=== PATIENT | male | born 1950 | race Caucasian/White ===

== ENCOUNTER 2023-05-16 12:21 | Outpatient (REF) | payer MEDICARE, OTHER, SELFPAY | END 2023-05-16 12:22 | disposition home or self-care (01) | LOC: HO.MDS 12:21 | PROVIDERS: Visit Provider Psychiatry & Neurology Neurology | DX: G35 Multiple sclerosis (principal) | CPT/HCPCS: 96365; J2930 ==

== ENCOUNTER 2023-05-17 12:21 | Outpatient (REF) | payer MEDICARE, OTHER, SELFPAY | END 2023-05-17 12:22 | disposition home or self-care (01) | LOC: HO.MDS 12:21 | PROVIDERS: Visit Provider Psychiatry & Neurology Neurology | DX: G35 Multiple sclerosis (principal) | CPT/HCPCS: 96365; J2930 ==

== ENCOUNTER 2023-05-18 12:15 | Outpatient (REF) | payer MEDICARE, OTHER, SELFPAY | END 2023-05-18 12:16 | disposition home or self-care (01) | LOC: HO.MDS 12:15 | PROVIDERS: Visit Provider Psychiatry & Neurology Neurology | DX: G35 Multiple sclerosis (principal) | CPT/HCPCS: 96365; J2930 ==

== ENCOUNTER 2025-09-17 12:22 | Outpatient (AMB) | payer MEDICARE, OTHER, SELFPAY ==
--- NOTE | 2025-09-17 12:33 | MHC.OFFVIS ---
Intake Visit Reasons: 1 year follow up/ MS Allergies No Known Allergies Allergy (Verified 07/05/25 10:53) HPI Comments Details: 75 yo RH man with HTN, left foot drop, and abnormal brain MRI suggestive of chronic multiple sclerosis. In 2017, he had an MRI to investigate left leg weakness that suggested a right frontal infarct, but MRI also showed many other lesions suggestive of demylinating disease and no acute lesion to explain left leg weakness. He has stopped drinking alcohol. He is presenting for a follow-up visit for chronic multiple sclerosis. He reports his condition has been stable over the last year, with no decline in his ability to get around, and he continues to use a cane, which he has had for about a year and a half. He does not use a walker. The patient reports experiencing better and worse days, and notes that his symptoms are exacerbated by heat. He previously received a course of three steroid injections which provided no noticeable improvement in his symptoms. The patient reports going to the gym for exercise. He endorses having a depressed mood related to his physical limitations and inability to run as he did many years ago. He also reports urinary frequency, which he is unsure is related to his prostate or MS, and reports recent pain in his other leg, which is attributed to arthritis. [facility] Medical History (Updated 09/17/25 @ 12:34 by Mikal Quintana MD) Hemiparesis Spastic bladder Peripheral neuropathy Monoparesis Ataxia MCI (mild cognitive impairment) Review of Systems Narrative - Neurological: Reports stable walking ability with the use of a cane. - Denies recent falls. - Constitutional: Reports symptoms are exacerbated by heat. - Reports low energy. - Psychiatric: Reports feeling depressed due to physical limitations. - Genitourinary: Reports urinary frequency. - Musculoskeletal: Reports recent pain in one leg, attributed to arthritis. - Cognition: Reports memory is not bad. - Sleep: Reports sleeping pretty good. - Appetite: Reports appetite is okay. Physical Exam Neuro Other: Mental Status: Alert and oriented to person, place, and time. Normal attention. Normal spontaneous speech, fluency, and comprehension. Cranial Nerves: CN II: Visual ivy full to confrontation, visual acuity intact. CN III, IV, : Pupils equal, round, reactive to light and accommodation. Extraocular movements are normal. CN V: Facial sensation is normal. CN VII: Facial movements symmetrical. CN VIII: Hearing intact to bedside conversation is normal. CN IX, X: Palate elevates symmetrically. CN XI: Shoulder shrug and head turn symmetrical. CN XII: Tongue midline without atrophy or fasciculations. Extrapyramidal: Full facial expressions and blinking. No rigidity. Movements are appropriate with no tremor or abnormality. Speech: Normal; no dysarthria or tremor. 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 04/25/23. MRI brain WO at [facility] [place] in 2017: Multiple b/l small lesions suggestive most of demyelinating disease. Plus an acute left frontal patchy lesion, ?ischemic MRA brain and neck at [facility] [place] in 2017: [place]. Code(s): G35.D - Multiple sclerosis, unspecified Category: Medical Plan Impression: a: Chronic multiple sclerosis b: Mild depression b: Mild cognitive impairment Rec: a; Regular exercise b: Stay active c: Try to use a walker for safety I discussed with the patient that his multiple sclerosis is now in a chronic phase, which means it is stable and not expected to significantly worsen, but also not likely to improve. We reviewed his prior trial of steroid injections, and since he reported no benefit, we agreed not to pursue that treatment again. I recommended he continue exercising, including walking and careful strength training, to support his leg function. I offered a referral for physical therapy, which he declined, stating he prefers to go to the gym on his own. I advised that no medication changes are needed at this time and scheduled a follow-up appointment in one year. Coding Level of Care Code Est Pt Level 4 (11236) Diagnoses Multiple sclerosis G35.D
--- OUTSIDE RECORDS SUMMARY | 2025-09-17 13:27 | XMS_ITS | Clinical Summary ---
Author Organization [facility] [address] [facility] Address [address] [place] [address] Phone Care Team Providers Care Engine Repair Supervisor Name Role Phone Terrell Wood Primary Care Provider Allergies No known active allergies Medications lisinopril-hydro CHLOROthiazide (PRINZIDE,ZESTOR ETIC) 10-12.5 mg per tablet Take 1 tablet by mouth 1 (one) time each day. 02/23/2022 Active atorvastatin (LIPITOR) 20 mg tablet Take 1 tablet (20 mg total) by mouth. 03/30/2022 Active Medical History Medical History Date Comments Hypertension DX:Hypertension Hypercholesteremia DX:Hyperchole steremia Family History Medical History Relation Name Comments Cancer Father Cancer Mother Relation Name Status Comments Father Mother Social History Tobacco Use Types Packs/Day Years Used Date Smoking Tobacco: Former Smokeless Tobacco: Never Alcohol Use Standard Drinks/Week Comments Yes 0 (1 standard drink = 0.6 oz pur e alcohol) Interpersonal Safety Answer Date Record ed Physical Abuse Unrecognized value 10/01/2024 Verbal Abuse Unrecognized value 10/01/2024 Sex and Gender Information Value Date Recorded Sex Assigned at Male 09/28/2024 1:55 PM EST Legal Sex Male 5:05 PM EST Gender Identity Not on file Sexual Orientation Not on file Last Filed Vital Signs Vital Sign Reading Time Taken Comments Blood Pressure 111/67 10/01/2024 9:54 AM EST Pulse 61 10/01/2024 9:54 AM EST Temperature - - Respiratory Rate 16 10/01/2024 9:54 AM EST Oxygen Saturation 98% 10/01/2024 9:54 AM EST Inhaled Oxygen Concentration - - Weight 83.9 kg (185 lb) 10/01/2024 9:06 AM EST Height 182.9 cm (6') 10/01/2024 9:06 AM EST Body Mass Index 25.09 10/01/2024 9:06 AM EST Plan of Treatment Health Maintenance Due Date Last Done Comments Cholesterol Screening (Lipid Panel) 08/25/2022 Hepatitis C Screening 08/25/2022 Medicare Annual Wellness Visit 08/25/2022 Social Influencers of Health Screening 08/25/2022 RSV Immunization Adult Patients (1 - 1-dose 75+ series) 2024 Depression Screening 09/26/2024 COVID-19 Vaccine (2024- season) 2025 08/14/2024, 06/17/2023, 02/27/2023, Additional history exists Influenza Vaccine (#1) 2025 , 07/31/2022, 07/08/2021, Additional history exists Falls Risk Assessment 10/01/2025 10/01/2024 DTaP,Tdap,and Td Vaccines (3 - Td or Tdap) 07/19/2029 07/19/2019, 07/12/2008 Pneumococcal Vaccine: 50+ Years Completed 07/31/2022, 11/06/2015, 11/05/2014 Zoster Vaccines Completed 08/25/2023, 05/28, 12/16/2015 Colorectal Cancer Screening: Colonoscopy Discontinued 10/01/2024 HIB Vaccines Aged Out No longer eligi ble based on patient's age to complete this topic HPV Vaccines Aged Out No longer eligi ble based on patient's age to complete this topic Hepatitis A Vaccines Aged Out No long er eligible based on patient's age to complete this topic Hepatitis B Vaccines Aged Out No long er eligible based on patient's age to complete this topic IPV Vaccines Aged Out No longer eligi ble based on patient's age to complete this topic MMR Vaccines Aged Out No longer eligi ble based on patient's age to complete this topic Meningococcal ACWY Vaccine Aged Out N o longer eligible based on patient's age to complete this topic Meningococcal B Vaccine Aged Out No l onger eligible based on patient's age to complete this topic RSV Immunization Patients Under 20 months Aged Out No longer eligible based on patient's age to complete this topic Varicella Vaccines Aged Out No longer eligible based on patient's age to complete this topic Procedures Procedure Name Priority Date/Time Associated Diagnosis Comments COLONOSCOPY Routine 10/01/2024 9:33 AM EST Personal history of other colon polyps from Last 3 Months or Most Recently Relevant to Health Maintenance Results * COLONOSCOPY Sedation; [facility] ENDOSCOPY (10/01/2024 9:33 AM EST) Anatomical Region Laterality Modality Endoscopy 10/01/2024 9:13 AM EST Impressions 10/01/2024 9:33 AM EST - Non-bleeding internal hemorrhoids. - The examination was otherwise normal on direct and retroflexion views. - No specimens collected. Recommendation: - Discharge patient to home. - Resume previous diet. - Continue present medications. - Repeat colonoscopy in 5 years for surveillance. - Return to GI office PRN. Narrative 10/01/2024 9:33 AM EST [facility] GI Patient Name: Geo Hyde Procedure Date: 10/01/2024 9:13 AM Date of : 1950 Age: 74 Room: ROOM 15 Gender: Male Note Status: Finalized Attending MD: King Carbone MD, Procedure Date No Time: 10/01/2024 Procedure: Colonoscopy Indications: High risk colon cancer surveillance: Personal history of colonic polyps Providers: King Carbone MD Referring MD: King Carbone MD Medicines: Monitored Anesthesia Care Complications: No immediate complications. Estimated Blood Loss: Estimated blood loss: none. Procedure: Pre-Anesthesia Assessment: - ASA Grade Assessment: II - A patient with mild systemic disease. - After reviewing the risks and benefits, the patient was deemed in satisfactory condition to undergo the procedure. After I obtained informed consent, the scope was passed under direct vision. Throughout the procedure, the patient's blood pressure, pulse, and oxygen saturations were monitored continuously.The Colonoscope was introduced through the anus and advanced to the cecum, identified by appendiceal orifice and ileocecal valve. The colonoscopy was performed without difficulty. The patient tolerated the procedure well. The quality of the bowel preparation was good. Findings: Non-bleeding internal hemorrhoids were found during retroflexion. The hemorrhoids were medium-sized. The exam was otherwise without abnormality on direct and retroflexion views. Procedure Code(s): --- Professional --- G0105, Colorectal cancer screening; colonoscopy on individual at high risk Diagnosis Code(s): --- Professional --- Z86.010, Personal history of colonic polyps CPT copyright 2020 [employer]. All rights reserved. The codes documented in this report are preliminary and upon orthopedic coder review may be revised to meet current compliance requirements. King Carbone MD 10/01/2024 9:33:31 AM This report has been signed electronically.King Carbone MD Number of Addenda: 0 Note Initiated On: 10/01/2024 9:13 AM Scope In: Scope Out: Endoscopy Department at [facility] - [address] [place] [id number] Procedure Note King Carbone MD - 10/01/2024 [facility] GI Patient Name: Geo Hyde Procedure Date: 10/01/2024 9:13 AM Date of : 1950 Age: 74 Room: ROOM 15 Gender: Male Note Status: Finalized Attending MD: King Carbone MD, Procedure Date No Time: 10/01/2024 Procedure: Colonoscopy Indications: High risk colon cancer surveillance: Personalhistory of colonic polyps Providers: King Carbone MD Referring MD: King Carbone MD Medicines: Monitored Anesthesia Care Complications: No immediate complications. Estimated Blood Loss: Estimated blood loss: none. Procedure: Pre-Anesthesia Assessment: - ASA Grade Assessment: II - A patient with mild systemic disease. - After reviewing the risks and benefits, thepatient was deemed in satisfactory condition to undergo the procedure. After I obtained informed consent, the scope was passed under direct vision. Throughout theprocedure, the patient's blood pressure, pulse, and oxygen saturations were monitored continuously.The Colonoscope was introduced through the anus and advanced to the cecum, identified by appendiceal orifice and ileocecal valve. The colonoscopy was performed without difficulty. The patient tolerated the procedure well. The quality of the bowel preparation was good. Findings: Non-bleeding internal hemorrhoids were found during retroflexion. The hemorrhoids were medium-sized. The exam was otherwise without abnormality ondirect and retroflexion views. Procedure Code(s): --- Professional --- G0105, Colorectal cancer screening; colonoscopy on individual at high risk Diagnosis Code(s): --- Professional --- Z86.010, Personal history of colonic polyps CPT copyright 2020 [employer]. All rights reserved. The codes documented in this report are preliminary and upon orthopedic coder reviewmay be revised to meet current compliance requirements. King Carbone MD 10/01/2024 9:33:31 AM This report has been signed electronically.King Carbone MD Number of Addenda: 0 Note Initiated On: 10/01/2024 9:13 AM Scope In: Scope Out: Endoscopy Department at [facility] - [address] [place] [phone] IMPRESSION: - Non-bleeding internal hemorrhoids. - The examination was otherwise normal on directand retroflexion views. - No specimens collected. Recommendation: - Discharge patient to home. - Resume previous diet. - Continue present medications. - Repeat colonoscopy in 5 years for surveillance. - Return to GI office PRN. King Carbone MD GI~PROCEDURE ORDERABLES Final Result from Last 3 Months or Most Recently Relevant to Health Maintenance Insurance MEDIC[facility] Care Teams Engine Repair Supervisor Relationship Specialty [place] [address] [place] [phone] PCP - General Internal Medicine 07/17/24
--- OUTSIDE RECORDS SUMMARY | 2025-09-17 13:28 | XMS_ITS | Clinical Summary ---
Author Organization [facility] Prior to 02/23/[address] [place] [address] Care Team Providers Care Instrument Processing Tech Name Role Phone Terrell Wood PA-C Primary Care Provider [phone]- [phone] Medications Medication Sig Dispensed Refills Start Date End Date Status atorvastatin (LIPITOR) tablet 20 mg Take 20 mg by mouth daily. 0 03/30/2022 Active lisinopril-hydroCHLORO thiazide (PRINZIDE,ZESTORETIC) tablet 10-12.5 mg Take 1 tablet by mouth daily. 0 02/23/2022 Active Hospital, Clinic, or Other Facility Administered Medication Ordered Dose Route Frequency Start Date End Date Status lidocaine 2 % injection 4 mLIndications:Primary osteoarthritis of right knee 4 mL SC Once 05/19/2022 Active bupivacaine (MARCAINE) 0.5 % injection 20 mgIndications:Primary osteoarthritis of right knee 20 mg IJ Once 05/19/2022 Active triamcinolone acetonide (KENALOG-40) injection 40 mgIndications:Primary osteoarthritis of right knee 40 mg IX Once 05/19/2022 Active Family History Medical History Relation Name Comments Cancer Father Cancer Mother Relation Name Status Comments Father Mother Social History Tobacco Use Types Packs/Day Years Used Date Smoking Tobacco: Former Smokeless Tobacco: Never Alcohol Use Standard Drinks/Week Comments Yes 0 (1 standard drink = 0.6 oz pur e alcohol) Sex and Gender Information Value Date Recorded Sex Assigned at Not on file Gender Identity Not on file Sexual Orientation Not on file Job Start Date Occupation Industry Not on file Not on file Not on file Plan of Treatment Health Maintenance Due Date Last Done Comments Hepatitis C Screening 1950 Depression Screening 1961 Preventative Health Evaluation 1967 Shingrix-Zoster Vaccine (1 of 2) 1999 Fall Risk Assessment 2014 RSV Adult > 60+ Yrs or (1 - 1-dose 75+ series) 2024 COVID-19 Vaccine ( season) 2025 04/16/2022, 06/24/2021, 12/22/2020, Additional history exists Influenza Vaccine (#1) 2025 , 07/04/2020, 07/19/2019, Additional history exists DTap / Tdap / Td (3 - Td or Tdap) 07/19/2029 07/19/2019, 07/12/2008 Pneumococcal Vaccine Completed 11/06/2015, 11/05/19 15 Hepatitis B Vaccines Aged Out No long er eligible based on patient's age to complete this topic RSV Ped < 20 months Aged Out No longe r eligible based on patient's age to complete this topic Care Teams Instrument Processing Tech Relationship Specialty Start Date End Date Terrell Wood PA-C [address] [phone] PCP - General Medical Services 05/19/22
--- OUTSIDE RECORDS SUMMARY | 2025-09-17 13:28 | XMS_ITS | Continuity of Care Document ---
Author Organization [facility], Main Office Address [address] [place] [address] Care Team Providers Care Excelsior Machine Operator Name Role Phone YESSI GARCIA Plasterer Spray Gun SHANE COTO Physical Therapist [phone] GHULAM MURRY Sales Representative Graphic Art TERRELL ASHER Primary Care Provider GREGORY GARCIA Neurologist Assessment No assessment recorded. Plan of Treatment Reminders Order Date Submit Date Provider Last Modified By Organization Details Last Modified Time Details Appointments None recorded. Lab vitamin D, 25-hydrox y, total, serum 2024 MIKE [facility] (Centralized Electronic Ordering - All Locations), Patient Can Go To The Location Of Their Choice, [address] 11:42:41 HbA1c (hemoglob in A1c), blood 2024 MIKE [facility] (Centralized Electronic Ordering - All Locations), Patient Can Go To The Location Of Their Choice, [address] 11:42:42 BMP, serum or plasma 2024 MIKE [facility] (Centralized Electronic Ordering - All Locations), Patient Can Go To The Location Of Their Choice, [address] 11:42:41 Referral general surgeon referral [address] [facility] General Surgery, [address] [place] [address] Destin Cade, [place], [address], 12:00:45 Procedures None recorded. Surgeries None recorded. Imaging None recorded. Medication Orders None recorded. Patient Targets Encounter Date Encounter Id Patient Goals Patient Target Last Modified By Organization Details Last Modified Time 09/03/2025 [id number] residential goal of Blood Pressure 140 / 90 Not available Not available Not available terminal manager goal of Exercise level Not available Not available Not available residential goal of Tobacco Smoking Status Not available Not available Not available Pt advised and agrees to eat a low salt low fat diet; to do moderate exercise (such as walking) 150 minutes per week; to limit alcohol intake (goal of 2 drinks per day or less for men or 1 for woman). and to monitor dietary sodium. Will monitor home blood pressures and bring readings to appointments. Patient preferences and goals incorporated in plan and updated/modifie d as needed to reflect progress toward goal. pmadden Not available 09/03/2025 12:19:59 Patient Instructions Encounter Date Encounter Id Patient Instructions Last Modified By Organization Details Last Modified Time 09/03/2025 [id number] constipation: care instructions pmadden Not available 09/03/2025 11:49:58 inguinal hernia: care instructions pmadden Not available 09/03/2025 11:49:45 Medications (OTC , herbal therapies, supplements) reviewed and reconciled with patient and or caregiver, including potential side effects, drug interactions, instructions, and the consequences of not taking medication. Reviewed potential barriers to medication adherence, such as side effects from medication or cost of medication. pmadden Not available 09/03/2025 11:50:23 Reason for Referral General Surgeon Referral for Left inguinal hernia Referring Physician: Terrell Asher, Internal Medicine, Encounter Date: 09/03/2025 Problems Name Problem SNOMED Code Status Onset Date Resolution Date Notes Provider Name and Address Organization Details Recorded Time Pain of shoulder region 22725594 Active Not Available [facility] 3 08:40:30 Fatigue 96869188 Com[facility]08[facility] 10:09:26 Chest pain on exertion 65388235 Completed 11/08/2016 EVETTE Saul [facility] 7 10:09:23 Adjustme nt disorder with depresse d mood 98622405 Active Not Available [facility] 3 08:40:30 Anemia 801461192 Active Not Available [facility] 3 08:40:30 Benign prostati c hyperpla kerry 163407193 Active Not Available [facility] 3 08:40:30 Elevated blood-pr essure reading without diagnosi s of hyperten arabella 953434330 Completed 01/19/2019 Quentin Bell MD [address], [place], [address] , [facility] 9 13:24:08 Phobia 949989905 Active fear of flying Not Available [facility] 3 08:40:30 Tobacco user 666657644 Completed Removal Reason: quit EVETTE Saul, [facility] 7 10:09:10 History of clinical finding in subject 552530696 Completed 11/08/2016 EVETTE Saul, [facility] 7 10:09:19 Hyperlip idemia 69592132 Active Not Available [facility] 3 08:40:30 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 22866713 Active Not Available [facility] 3 08:40:30 Overweig ht 769237510 Active Not Available [facility] 3 08:40:30 Pruritus ani 74911767 Active Not Available [facility] 3 08:40:30 Disorder of skin and/or subcutan eous tissue 81440607 Active Not Available [facility] 3 08:40:30 Foot-michaela p 0881988 Active 1999 Not Available [facility] 3 08:40:30 Enthesop athy of knee 75114110 Completed 200705/06/2014 RECORDED 07/12/20 08 9:33AM BY CYNTHIA BARRERA ON/ADDEN DUM Not Available [facility] 4 05:28:25 Administ ration of bacteria l and viral vaccine Completed 200705/06/2014 RECORDED 07/12/20 08 9:56AM BY LEA BOWMAN, OFFICE VISIT Not Available [facility] 4 05:28:25 Enthesop athy of knee 15735457 Completed 200704/09/2014 RECORDED 07/12/20 08 9:33AM BY LEA BOWMAN, ANNOTATI ON/ADDEN DUM Not Available [facility] 4 14:19:07 Administ ration of bacteria l and viral vaccine Completed 200704/09/2014 RECORDED 07/12/20 08 9:56AM BY LEA BOWMAN, OFFICE VISIT Not Available [facility] 4 14:19:08 Disorder of bursa of shoulder region 23245333 Completed 200905/06/2014 RECORDED 08/17/20 10 3:46PM BY QUENTIN BELL MD, ANNOTATI ON/ADDEN DUM Not Available [facility] 4 05:28:25 Disorder of bursa of shoulder region 91809665 Completed 200904/09/2014 RECORDED 08/17/20 10 3:46PM BY QUENTIN BELL MD, ANNOTATI ON/ADDEN DUM Not Available [facility] 4 14:19:08 [facility] hyperten arabella 46674051 Completed 201105/06/2014 IMPRESSI ON: NO MEDS NOW; RECORDED 09/28/19 12 3:37PM BY GLADIS PEPPER MA, ANNOTTIM ON/ADDEN DUM EVETTE Wilson [facility] 9 13:48:53 Essentia l hyperten arabella 95267856 Completed 201104/09/2014 IMPRESSI ON: NO MEDS NOW; RECORDED 09/28/19 12 3:37PM BY GLADIS PEPPER MA, ANNOTTIM ON/ADDEN DUM EVETTE Wilson [facility] 9 13:48:53 Hyperlip idemia 67719657 Completed 201104/09/2014 RECORDED 09/28/19 12 3:37PM BY GLADIS PEPPER MA, ANNOTATI ON/ADDEN DUM Not Available [facility] 4 14:19:08 Screenin g for malignan t neoplasm of colon Completed 201205/06/2014 RECORDED 10/11/19 13 3:05PM BY GLADIS PEPPER MA, ANNOTATI ON/ADDEN DUM Not Available [facility] 4 05:28:25 Screenin g procedur e Completed 201205/06/2014 RECORDED 10/11/19 13 3:05PM BY GLADIS PEPPER MA, ANNOTATI ON/ADDEN DUM Not Available [facility] 4 05:28:25 Administ ration of viral vaccine Completed 201205/06/2014 RECORDED 10/11/19 13 3:05PM BY GLADIS PEPPER MA, ANNOTATI ON/ADDEN DUM Not Available [facility] 4 05:28:25 Screenin g for malignan t neoplasm of colon Completed 201204/09/2014 RECORDED 10/11/19 13 3:05PM BY GLADIS PEPPER MA, ANNOTATI ON/ADDEN DUM Not Available [facility] 4 14:19:07 Screenin g procedur e Completed 201204/09/2014 RECORDED 10/11/19 13 3:05PM BY GLADIS PEPPER MA, ANNOTATI ON/ADDEN DUM Not Available [facility] 4 14:19:08 Administ ration of viral vaccine Completed 201204/09/2014 RECORDED 10/11/19 13 3:05PM BY GLADIS PEPPER MA, ANNOTATI ON/ADDEN DUM Not Available [facility] 4 14:19:08 Low back pain 150368316 Completed 201205/06/2014 RECORDED 04/11/20 13 1:39PM BY GLADIS PEPPER MA, ANNOTATI ON/ADDEN DUM Not Available [facility] 4 05:28:25 Low back pain 472308018 Completed 201204/09/2014 RECORDED 04/11/20 13 1:39PM BY GLADIS PEPPER MA, CYNTHIA ON/ADDEN DUM Not Available [facility] 4 14:19:08 Malaise and fatigue 051909197 Completed 201305/06/2014 RECORDED 10/29/19 14 3:19PM BY GLADIS PEPPER MA, ANNOTATI ON/ADDEN DUM Not Available [facility] 4 05:28:25 Malaise and fatigue 373557451 Completed 201304/09/2014 RECORDED 10/29/19 14 3:19PM BY GLADIS PEPPER MA, BLANQUITAATI ON/ADDEN DUM Not Available [facility] 4 14:19:07 Adult health examinat ion Completed 201305/06/2014 RECORDED 01/30/20 14 11:03AM BY GLADIS PEPPER MA, CYNTHIA ON/ADDEN DUM Not Available [facility] 4 05:28:25 Influenz a vaccine needed 14060388261 06 Completed 201305/06/2014 RECORDED 01/30/20 14 11:03AM BY GLADIS PEPPER MA, ANNOTATI ON/ADDEN DUM Not Available [facility] 4 05:28:25 Adult health examinat ion Completed 201304/09/2014 RECORDED 01/30/20 14 11:03AM BY GLADIS PEPPER MA, ANNOTATI ON/ADDEN DUM Not Available [facility] 4 14:19:07 Influenz a vaccine needed 07255752621 06 Completed 201304/09/2014 RECORDED 01/30/20 14 11:03AM BY GLADIS PEPPER MA, ANNOTATI ON/ADDEN DUM Not Available [facility] 4 14:19:07 Ex-smoke r 7711865 Active 2016 Not Available [facility] 3 08:40:30 Tubular adenomat ous polyp of colon 887406764 Active 2017 Not Available [facility] 3 08:40:30 Essentia l hyperten arabella 22554157 Active 2018 Not Available [facility] 3 08:40:30 Chronic low back pain 783572434 Active 2020 Not Available [facility] 3 08:40:30 History of polyp of colon 487091337 Active 2020 Not Available [facility] 3 08:40:30 Prediabe linda 293691311 Active 2020 Not Available [facility] 3 08:40:30 Demyelin ating disease of central nervous system 4474349 Active 2022 Not Available [facility] 3 08:40:30 Fever 832234587 Active 2022 Not Available [facility] 3 08:40:30 Pain in lower limb 64753503 Active 2022 Not Available [facility] 3 08:40:29 Cough 91721912 Completed 202202/09/2024 Terrell Asher PA-C [address], [place], [address] , [facility] 4 11:42:45 Pain of multiple joints 06851432 Active 2022 Not Available [facility] 3 08:40:30 Multiple sclerosi s 48851310 Active 2022 Not Available [facility] 3 08:40:30 Gout 50752406 Active 2023 Terrell Asher PA-C [address], [place], [address] , [facility] 4 11:52:11 Pain of right calf 44011206975 59727 Active 2024 Sindhu hugo [facility] 5 16:16:54 Disorder of right sciatic nerve 72414120105 9102 Active 2024 Sindhu hugo [facility] 5 17:33:55 Vitamin D deficien cy 62498848 Active 2024 Terrell Asher PA-C [address], [place], [address] , [facility] 5 11:35:00 Chronic constipa tion 010996180 Active 2024 Terrell Asher PA-C [address], [place], [address] , [facility] 5 11:49:50 Left inguinal hernia 898143799 Active 2024 Terrell Asher PA-C [address], [place], [address] , [facility] 5 12:19:23 Problem Notes None recorded. Procedures Surgical History Date Name Laterality Status Provider Name and Address Organization Details Recorded Time 10/01/19 25 Colonoscopy completed Lin Valladares [facility] 10/01/2024 11:47:01 02/09/20 24 Advanced Care Planning completed Stephany Cannon MA [facility] 02/09/2024 11:11:59 01/06/20 21 Six-Item Cognitive Test completed Aleja Tobias MA [facility] 01/05/2021 11:21:51 01/20/20 19 Mini-Cog Test completed Ary Mora [facility] 01/19/2019 12:59:58 03/28/20 18 Colonoscopy completed Emily Gomez [facility] 03/30/2018 14:26:13 11/08/19 17 Fall Risk Assessment completed Gladis Biggs MA [facility] 11/08/2016 10:16:02 11/08/19 17 Mini-Cog Test completed Gladis Biggs MA [facility] 11/08/2016 10:18:03 11/24/19 16 Unlisted misc px dx nuc med completed Malathi Goodman [facility] 11/27/2015 10:01:39 11/06/19 16 Fall Risk Assessment completed Gladis Biggs MA [facility] 11/06/2015 13:17:27 11/06/19 16 Mini-Cog Test completed Gladis Biggs MA [facility] 11/06/2015 13:18:48 11/06/19 16 Advanced Care Planning completed Gladis Biggs MA [facility] 11/06/2015 13:04:07 11/05/19 15 Fall Risk Assessment completed Shanel Jara [facility] 11/05/2014 11:18:54 11/05/19 15 Mini-Cog Test completed Shanelsid Jara MA [facility] 11/05/2014 11:18:54 09/26/18 81 Hernia Repair completed Jannette Juarez MA [facility] 01/07/2022 13:15:57 Appendectomy completed Shanel Jara [facility] 11/05/2014 09:16:11 Cataract Surgery completed Jannettesheba Juarez [facility] 01/07/2022 13:14:26 Imaging Results None recorded. Procedure Notes None recorded. Medical Equipment None Reported. Allergies Allergen ID Allergen Name Allergen Category Reaction Reaction Severity Criticality Documentation Date Start Date Code Code System Note Provider Name and Address Organization Details Recorded Time 5503 Zocor medicatio n Not available Not available Not available 04/09/20142012 44627 3 RxNorm COMME NT: RECOR DED 04/11 1:41P M BY DEANDRA FRANKLIN [place], OFFIC E VISIT ; Not Available [facility] 4 13:23:18 Medications Name Sig Start Date Stop Date Status Note LastModified by Organization Details LastModified Time amoxicill in 500 mg capsule TAKE 1 CAPSULE BY MOUTH EVERY 8 HOURS UNTIL FINISHED 03/07 completed Not Available Not Available Not Available atorvasta tin 40 mg tablet Take 1 tablet every day by oral route as directed . 02/07 completed Not Available Not Available Not Available atorvasta tin 20 mg tablet TAKE 1 TABLET BY MOUTH EVERY DAY active Not Available Not Available No t Available ibuprofen 800 mg tablet Take 1 tablet 3 times a day by oral route as needed. 07/19 completed Not Available Not Available Not Available ofloxacin 0.3 % eye drops 01/05 completed Not Available Not Available Not Available hydrocodo ne 5 mg-acetam inophen 325 mg tablet TAKE 1 TABLET BY MOUTH EVERY 6 HOURS NEEDED 02/07 completed Not Available Not Available Not Available Wart Remover 17 % topical liquid APPLY TO AFFECTED AREA TWICE A DAY FOR 7 DAYS 01/05 completed Not Available Not Available Not Available meloxicam 15 mg tablet Take 1 tablet every day by oral route for 30 days. 02/07 completed Not Available Not Available Not Available Plavix 75 mg tablet Take 1 tablet every day by oral route as directed for 15 days. 02/07 completed Not Available Not Available Not Available acetamino phen 650 mg tablet Take 1 tablet every 8 hours by oral route as directed for 10 days. 03/17 completed Not Available Not Available Not Available amoxicill in 500 mg tablet TAKE 4 TABLETS BY MOUTH NIKOLAI AND 1 TABLET 3 TIMES A DAY FOR 1 WEEK 01/05 completed Not Available Not Available Not Available benzocain e 15 mg lozenges Take 1 lozenge every 3 hours by mucous route around the clock for 5 days. 02/07 completed Not Available Not Available Not Available benzonata te 100 mg capsule Take 1 capsule 3 times a day by oral route as directed for 3 days. 02/07 completed Not Available Not Available Not Available simvastat in 20 mg tablet QD 10/11 completed RECORDED 10/11/19 13 3:12PM BY GLADIS PEPPER MA, OFFICE VISIT; Not Available Not Available Not Available indometha kayla 25 mg capsule active Not Available Not Available Not Available indometha kayla 50 mg capsule Take 1 capsule 3 times a day by oral route as directed for 7 days. 02/07 completed Not Available Not Available Not Available nystatin- triamcino lone 100,000 unit/g-0. 1 % topical cream Apply 1 applicat ion twice a day by topical route as needed. 11/08 completed Not Available Not Available Not Available aspirin 81 mg tablet Take 1 tablet every day by oral route as directed for 15 days. 03/17 completed Not Available Not Available Not Available lorazepam 1 mg tablet TAKE 1 TABLET BY MOUTH TWICE A DAY NEEDED FOR 5 DAYS 02/08 completed Not Available Not Available Not Available lisinopri l 10 mg-hydroc hlorothia zide 12.5 mg tablet TAKE 1 TABLET BY MOUTH EVERY DAY active Not Available Not Available No t Available ibuprofen 600 mg tablet TAKE 1 TABLET 3 TIMES A DAY BY ORAL ROUTE NEEDED. 2020 active Not Available Not Available Not Avai lable moxifloxa kayla 0.5 % eye drops PLEASE SEE ATTACHED FOR DETAILED DIRECTIO NS 01/07 completed Not Available Not Available Not Available bupropion HCl XL 300 mg 24 hr tablet, extended release DAILY 04/11 completed RECORDED 10/29/19 14 3:24PM BY GLADIS PEPPER MA, OFFICE VISIT; Not Available Not Available Not Available chlorhexi dine gluconate 0.12 % mouthwash RINSE WITH 15ML BY MOUTH TWICE DAILY DIRECTED 01/05 completed Not Available Not Available Not Available Zostavax (PF) 19,400 unit/0.65 mL subcutane ous suspensio n NIKOLAI X 1 11/08 completed Not Available Not Available Not Available GaviLyte- N 420 gram oral solution 01/19 completed Not Available Not Available Not Available GaviLyte- G 236 gram-22.7 4 gram-6.74 gram-5.86 gram oral solution TAKE 8 OUNCE BY MOUTH DIRECTED FOLLOW INSTRUCT IONS PROVIDED TO YOU BY DOCTORS OFFICE 03/07 completed Not Available Not Available Not Available dalfampri dine ER 10 mg tablet,ex tended release,1 2 hr 08/06 completed is not taking Not Available Not Available Not Available Prolensa 0.07 % eye drops INSTILL 1 DROP IN THE OPERATIV E EYE ONCE A DAY FOR 21 DAYS. START 1 DAY BEFORE SURGERY 01/07 completed Not Available Not Available Not Available Fluzone High-Dose Quad 2020- (PF) 240 mcg/0.7 mL IM syringe PHARMACY ADMINIST EREDara 01/05 completed Not Available Not Available Not Available Vitals Date Recorded Body height Body mass index (BMI) Body weight Heart rate Oxygen saturation Body temperature Systolic And Diastolic Provider Name and Address Organization Details Last Updated DateTime 5 184.15 cm 25.3 kg/m2 46145.9 6 g 71 /min 96 % 98.4 [degF] 133/64 mm[Hg] Zhanna Mcclelland MA [facility] 5 11:25:50 Social History Question Answer Notes LastModified by Organizat ion Details LastModified Time Tobacco Smoking Status [facility] 11/05/2014 11:20:49 Do You Have An Advance Directive? Yes Information not available 01/07/2022 Is Blood Transfusion Acceptable In An Emergency? Yes Information not available 11/06/2015 What Is Your Level Of Caffeine Consumption? Occasional Very Rarly Information not available 03/07/2025 How Much Tobacco Do You Chew? None Information not available 11/06/2015 Are You Deaf Or Do You Have Serious Difficulty Hearing? No Information not available 01/07/2022 What Type Of Diet Are You Following? REGULAR abigby Information not available 11/05/2014 Which Illicit Or Recreational Drugs Have You Used? None Information not available 11/06/2015 When Did You Quit Smoking? 16+yearssincel astcigreg Information not available 01/07/2022 Hard Of Hearing Or Deaf In One Or Both Ears? No Information not available 01/07/2022 Live Alone Or With Others? With Others (Nitza rendon) Information not available 01/07/2022 Do You Take Precautions To Prevent Distracted Driving? Yes Information not available 11/06/2015 How Often Do You Need To Have Someone Help You When You Read Instructions, Pamphlets, Or Other Written Material From Your Doctor Or Pharmacy? Never Information not available 11/06/2015 Have You Served In The ? No Information not available 11/08/2016 *AWV ONLY* Are You Presently Prescribed Opioid Medication By PCP Or Specialist? If YES -Provider Assess The Benefit For Other, Non-opioid Pain Therapies Instead, Even If The Patient Does Not Have OUD But Is Possibly At Risk. No [email or web address] Information not available 02/09/2024 Marital Status Informa tion not available 01/07/2022 What Was The Date Of Your Most Recent Tobacco Screening? 03/07/2025 Information not available 03/07/2025 How Many Children Do You Have? 2 Sons Information not available 11/06/2015 Do You Use Protection During Sex? Always Information not available 01/07/2022 Difficulty Reading? No Information not available 01/07/2022 Do You Use Your Seat Belt Or Car Seat Routinely? Yes Information not available 01/07/2022 Seat Belts Used Routinely Yes Information not available 01/07/2022 Are You Sexually Active? Yes Information not available 11/06/2015 Smoke Alarm In Home Yes Information not available 01/07/2022 Do You Have Smoke And Carbon Monoxide Detectors In Your Home? Yes Information not available 01/07/2022 At What Age Did You Start Smoking Tobacco? 13 Quit At 21 Information not available 11/06/2015 Are You Passively Exposed To Smoke? No Information not available 11/06/2015 How Much Tobacco Do You Smoke? 0.5 PPD Information not available 03/07/2025 Do You Use Sunscreen Routinely? Yes Information not available 01/07/2022 How Many Years Have You Smoked Tobacco? 8 Information not available 11/06/2015 Difficulty Watching TV? No Information not available 01/07/2022 Do You Have Difficulty Walking Or Climbing Stairs? No Information not available 01/07/2022 Sex: Unknown Functional Status Question Answer Note LastModified by Organizat ion Details LastModified Time Do you use any illicit or recreational drugs? No [email or web address] Information not available 02/07/2023 What is your level of alcohol consumption? Occasional Information not available 01/07/2022 Do you or have you ever used smokeless tobacco? Never used smokeless tobacco Information not available 07/19/2019 Are you currently employed? No retired Information not available 11/06/2015 Difficulty driving at night? Yes Start of some issue due to possible cataract Information not available 01/07/2022 Are you able to walk independently without assistance or assistive devices? YESASSIST Chunge Information not available 03/07/2025 Do you have difficulty doing errands alone? No Information not available 01/07/2022 Are you able to care for yourself independently? 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 No Information not available 01/07/2022 Do you or have you ever used e-cigarettes or vape? Never used electronic cigarettes Information not available 01/07/2022 What is your exercise level? Moderate 5-6 days per week. Mix of CV and strength training Information not available 11/06/2015 Mental Status Question Answer Note LastModified by Organization D etails LastModified Time Do you have difficulty concentrating, remembering or making decisions? No Information no t available 01/07/2022 Family History Relationship Description Onset Age of this Age Resolved Age Notes LastModified by Organization Details LastModified Time Father Malignant neoplasm of lung phelmuth Not available 2015 13:52:55 Mother Malignant neoplasm of ovary phelmuth Not available 2015 13:52:55 Notes:no fh P Ca or CRC Medical History Condition Response Hypertension Y Chicken Pox Y High Cholesterol Y Immunizations Vaccine Type Date Status Note Provider Nam e and Address Organization Details Recorded Time Influenza, split virus, trivalent, preservative 4 completed Lin Valladares null, [facility] 08/29/2023 09:06:34 zoster live 6 completed Lin Valladares null, [facility] 08/29/2023 09:06:34 Influenza, high-dose, trivalent, PF 6 completed Lin Valladares null, [facility] 08/29/2023 09:06:34 Influenza, high-dose, trivalent, PF 7 completed Lin Valladares null, [facility] 08/29/2023 09:06:34 Influenza, high-dose, quadrivalent, PF 0 completed Lin Valladares null, [facility] 08/29/2023 09:06:33 COVID-19, mRNA, LNP-S, PF, 30 mcg/0.3 mL dose 1 completed Lin Valladares null, [facility] 08/29/2023 09:06:33 COVID-19, mRNA, LNP-S, PF, 30 mcg/0.3 mL dose 1 completed Lin Valladares null, [facility] 08/29/2023 09:06:33 COVID-19, mRNA, LNP-S, PF, 30 mcg/0.3 mL dose 1 completed Lin Valladares null, [facility] 08/29/2023 09:06:33 Influenza, high-dose, trivalent, PF 8 completed Lin Valladares null, [facility] 08/29/2023 09:06:34 Influenza, split virus, trivalent, preservative 5 completed Lin Valladares null, [facility] 08/29/2023 09:06:34 Influenza, high-dose, quadrivalent, PF 1 completed Lin Valladares null, [facility] 08/29/2023 09:06:33 Pneumococcal conjugate PCV 13 5 completed Lin hugo, [facility] 08/29/2023 09:06:34 pneumococcal polysaccharide PPV23 6 completed Lin hugo, [facility] 08/29/2023 09:06:34 Influenza, high-dose, trivalent, PF 9 completed Lin hugo, [facility] 08/29/2023 09:06:34 Td (adult), 2 Lf tetanus toxoid, preservative free, adsorbed 9 completed Lin hugo, [facility] 08/29/2023 09:06:34 COVID-19, mRNA, LNP-S, PF, 30 mcg/0.3 mL dose, abhi-sucrose 2 completed Lin hugo, [facility] 08/29/2023 09:06:34 Pneumococcal conjugate PCV20, polysaccharide [id number] conjugate, adjuvant, PF 2 completed Lin hugo, [facility] 08/29/2023 09:06:34 Influenza, adjuvanted, quadrivalent, PF 2 completed Lin hugo, [facility] 08/29/2023 09:06:33 COVID-19, mRNA, LNP-S, bivalent, PF, 50 mcg/0.5 mL or 25mcg/0.25 mL dose 3 completed Lin hugo, [facility] 08/29/2023 09:06:34 COVID-19, mRNA, LNP-S, bivalent, PF, 50 mcg/0.5 mL or 25mcg/0.25 mL dose 3 completed Lin hugo, [facility] 08/29/2023 09:06:34 zoster recombinant 3 completed EVETTE Jasmine, [facility] 02/09/2024 11:12:18 COVID-19, mRNA, LNP-S, PF, 50 mcg/0.5 mL 3 completed Lin hugo, [facility] 08/29/2023 09:06:34 Influenza, adjuvanted, quadrivalent, PF 3 completed Stephany Cannon MA null, [facility] 02/09/2024 11:12:18 zoster recombinant 3 completed Stephany Cannon MA null, [facility] 02/09/2024 11:19:23 COVID-19, mRNA, LNP-S, PF, 50 mcg/0.5 mL 4 completed Lin hugo, [facility] 08/17/2024 09:02:51 Influenza, high-dose, trivalent, PF 4 completed Lin Valladares [facility], [facility] 09/24/2024 10:36:03 RSV, bivalent, protein subunit RSVpreF, diluent reconstituted, 0.5 mL, PF 5 completed Malathikaleigh Goodman [facility], [facility] 11/29/2024 10:24:29 Influenza, high-dose, trivalent, PF 5 completed Malathi Goodman null, [facility] 08/28/2025 15:15:25 COVID-19, mRNA, LNP-S, PF, 10 mcg/0.2 mL 5 completed Not Available [facility] 09/03/2025 11:03:26 Tdap 8 completed Lni hugo, [facility] 08/29/2023 09:06:34 Influenza, split virus, trivalent, preservative 1 completed Lin hugo, [facility] 08/29/2023 09:06:34 Influenza, split virus, trivalent, preservative 2 completed Lin hugo, [facility] 08/29/2023 09:06:34 Influenza, split virus, trivalent, preservative 3 completed Lin hugo [facility] 08/29/2023 09:06:34 Past Encounters Encounter ID Performer Location Encounter Start Date Encounter Closed Date Diagnosis/Indication Diagnosis SNOMED-CT Code Diagnosis ICD10 Code Diagnosis IMO Codes Diagnosis Note [id number] Jovi Alberts MD Main Office [address] [facility] [place] [id number] 09/03/2025 11:00:31 09/03/2025 11:53:18 Prediabetes 124678517 R73.03 Geo - unfortunat vin you have pre-diabet es - rec. less sugar intake (ice cream, candy, soda, juice, etc.) and follow a low carb diet. 11.24 - A1c slowly trending up, rest of labs normalrec less ice creamstopp ed beer (sig less) 6.25 - a1c was 6.0% in 11.24. diet controlled 12.25 - a1c down to 5.8 - less etoh Essential hypertension 33363034 I10 bp stable, cont meds as dir Vitamin D deficiency 347 73832 E55.9 16856 Geo - your vitamin D level is a little low. I rec. begin taking an over-the-c ounter vitamin D supplement 2000iu daily.- Pat Hyperlipidemia 70298989 E78.5 stable - cont med as dir Left inguinal hernia 236 [id number] K40.90 [id number] h/o R inguinal hernia repair > 30 yrs agoc/o bulging L groin x few wks - no pain - ? from situps vs heavy liftingwil l get general surgery evalmeanwh ile - rec avoid straining (see below) / heavy lifting, consider truss Chronic constipation 236 765165 K59.09 969900 chronic, mild - rec colace daily, as well as plenty of water intake Health Concerns Section Related Observation LastModified by Organization Detai ls LastModified Time None Recorded Concern Status LastModified by Organization Details LastModified Time None Recorded Payers Encounter Date Sequence Insurance Name Policy Number Policy Wilson Covered Member ID Wilson Member ID Guarantor Name 09/03/2025 2 [facility] IN[facility]MN[facility] PLAN (INDEMNITY) [id number] 2 Amirah Bazan [id number] Geo Das H[place]ensia 09/03/2025 1 MEDICARE [place]: [employer] Geo Das Hortensia [id number] Geo G Hortensia Notes Date Note Type Note Provider Name and Address Organization Details Recorded Time 09/03/2025 text/html Hypertension F/UReported by PatientHPIFor lifestyle, patient reportsnot exercising regularlybut reportslimiting/[place] iding salt. For associated symptoms, patient reportsno dizziness,no lightheadedness,no chest pain,no shortness of breath,no palpitations,no edema, andno calf pain with exertion. For medications, patient reportstaking medications as directedandno side effects from medication. Terrell Asher PA-C [address] [address], [place], [address], [facility] 09/03/2025 12:20:29
--- OUTSIDE RECORDS SUMMARY | 2025-09-17 13:28 | XMS_ITS | Data Portability ---
Author Organization [facility], Main Office Address [address] [place] [address] Care Team Providers Care Career Based Intervention Coordinator Name Role Phone YESSI GARCIA Social Work Assistant SHANE COTO Physical Therapist GHULAM MURRY Grapple Yarder Operator MARTHA ASHER Primary Care Provider GREGORY GARCIA Neurologist Assessment No assessment recorded. Plan of Treatment Reminders Order Date Submit Date Provider Last Modified By Organization Details Last Modified Time Details Appointments None recorded. Lab vitamin D, 25-hydroxy , total, serum 2024 025 MIKE [facility] (Centralized Electronic Ordering - All Locations), Patient Can Go To The Location Of Their Choice, [address] 5 11:42:41 HbA1c (hemoglobi n A1c), blood 2024 025 MIKE [facility] (Centralized Electronic Ordering - All Locations), Patient Can Go To The Location Of Their Choice, [address] 5 11:42:42 BMP, serum or plasma 2024 025 MIKE [facility] (Centralized Electronic Ordering - All Locations), Patient Can Go To The Location Of Their Choice, [address] 5 11:42:41 HbA1c (hemoglobi n A1c), blood 2024 025 MIKE [facility] (Centralized Electronic Ordering - All Locations), Patient Can Go To The Location Of Their Choice, [address] 5 08:06:51 lipid panel, serum 2024 025 MIKE [facility] (Centralized Electronic Ordering - All Locations), Patient Can Go To The Location Of Their Choice, 5 08:06:49 CK (creatine kinase), total, serum 2024 025 MIKE [facility] (Centralized [facility] Ordering - All Locations), Patient Can Go To The Location Of Their Choice, 08:06:50 CMP, serum or plasma 2024 025 MIKE [facility] ([facility]ized [facility] Ordering - All Locations), Patient Can Go To The Location Of Their Choice, 08:06:48 vitamin B12, serum 2024 025 MI[facility], [address], [place], [address], 5 08:06:54 folate, serum 2024 025 MIKE [facility], [address], [place], [address], 5 08:06:52 ferritin, serum or plasma 2024 025 MIKE [facility], [address], [place], [address], 5 08:06:55 CBC w/ auto diff 2024 025 MIKE [facility], [address], [place], [address], 5 08:06:47 TIBC (total iron-jerry ng capacity), serum 2024 025 MIKE [facility], [address], [place], [address], 5 08:06:50 vitamin D, 25-hydroxy , total, serum 2024 025 MIKE [facility], [address], [place], [address], 5 08:06:54 PSA, total, serum or plasma 2024 025 MIKE [facility] ([facility] Ordering - All Locations), Patient Can Go To The Location Of Their Choice, 5 08:06:53 HbA1c (hemoglobi n A1c), blood 2023 024 MIKE [facility] ([facility]ized [facility] Ordering - All Locations), Patient Can Go To The Location Of Their Choice, 4 06:07:53 BMP, serum or plasma 2023 024 MIKE [facility] ([facility]ized [facility] Ordering - All Locations), Patient Can Go To The Location Of Their Choice, 06:07:52 uric acid, serum or plasma 2023 024 MIKE [facility] ([facility]ized [facility] Ordering - All Locations), Patient Can Go To The Location Of Their Choice, 18:06:02 HbA1c (hemoglobi n A1c), blood 2023 024 MIKE [facility] ([facility]ized [facility] Ordering - All Locations), Patient Can Go To The Location Of Their Choice, 18:06:00 lipid panel, serum 2023 024 MIKE [facility] ([facility]ized [facility] Ordering - All Locations), Patient Can Go To The Location Of Their Choice, 18:05:58 CMP, serum or plasma 2023 024 MIKE [facility] ([facility] Ordering - All Locations), Patient Can Go To The Location Of Their Choice, 18:05:57 CK (creatine kinase), total, serum 2023 024 MIKE [facility] ([facility]ized [facility] Ordering - All Locations), Patient Can Go To The Location Of Their Choice, 18:05:59 vitamin B12, serum 2023 024 MIKE [facility], [address] [place] [address] Sarita, [place], [address], 4 18:06:02 folate, serum 2023 024 MIKE [facility], [address], [place], [address], 4 18:06:00 ferritin, serum or plasma 2023 024 MIKE [facility], [address], [place], [address], 4 18:06:03 CBC w/ auto diff 2023 024 MIKE [facility], [address], [place], [address], 4 18:05:56 TIBC (total iron-jerry ng capacity), serum 2023 024 MIKE [facility], [address], [place], [address], 4 18:05:58 PSA, total, serum or plasma 2023 024 MIKE [facility] ([facility] Ordering - All Locations), Patient Can Go To The Location Of Their Choice, 18:06:01 methylmalo david, QN, serum or plasma 2023 024 MIKE [facility] ([facility] Ordering - All Locations), Patient Can Go To The Location Of Their Choice, 18:06:01 BMP, serum or plasma 2022 023 MIKE [facility], [address], [address], [place], [address], 3 12:26:57 HbA1c (hemoglobi n A1c), blood 2022 023 MIKE [facility], [address], [address], [place], [address], 3 12:26:56 Referral general surgeon referral 2024 025 COLE [facility], [address] [place] [address] , [address], [place], [address], 5 12:00:45 physical medicine and rehabilita tion referral 2024 025 MIKE Roberts MD, [address], [address], [place], [address], 5 17:07:43 Procedures None recorded. Surgeries None recorded. Imaging None recorded. Medication Orders None recorded. Patient Targets Encounter Date Encounter Id Patient Goals Patient Target Last Modified By Organization Details Last Modified Time 08/11/2023 [id number] intermediate card tender goal of Blood Pressure 140 / 90 Not available Not available Not available intermediate card tender goal of Exercise level Not available Not available Not available care home goal of Tobacco Smoking Status Not available Not available Not available Ongoing of LDL Direct <100 Not available Not available Not available Ongoing of LDL Direct yearly Not available Not available Not available 08/11/2023 [id number] Pt advised and agrees to eat a [...] as needed to reflect progress toward goal. Pt agrees to follow low fat diet, avoid saturated fats , decrease carbohydrate intake to 45 - 50 gm per meal , pt agrees to develop a regular pattern of exercise such as walking 30 minutes a day 3 times a week, Pt will keep a record of exercise and activity level Patient preferences and goals incorporated in plan and updated/modifie d as needed to reflect progress toward goal. pmadden Not available 08/11/2023 13:17:24 03/07/2025 [id number] intermediate card tender goal of Blood Pressure 140 / 90 Not available Not available Not available intermediate card tender goal of Exercise level Not available Not available Not available intermediate card tender goal of Tobacco Smoking Status Not available Not available Not available Ongoing of LDL Direct <100 Not available Not available Not available Ongoing of LDL Direct yearly Not available Not available Not available 03/07/2025 [id number] Pt advised and agrees to eat a [...] as needed to reflect progress toward goal. Pt agrees to follow low fat diet, avoid saturated fats , decrease carbohydrate intake to 45 - 50 gm per meal , pt agrees to develop a regular pattern of exercise such as walking 30 minutes a day 3 times a week, Pt will keep a record of exercise and activity level Patient preferences and goals incorporated in plan and updated/modifie d as needed to reflect progress toward goal. pmadden Not available 03/07/2025 17:33:30 09/03/2025 [id number] care home goal of Blood Pressure 140 / 90 Not available Not available Not available care home goal of Exercise level Not available Not available Not available intermediate card tender goal of Tobacco Smoking Status Not available Not available Not available 09/03/2025 [id number] Pt advised and agrees to eat a [...] Modified By Organization Details Last Modified Time 08/11/2023 [id number] groin strain: care instructions pmadden Not available 08/11/2023 12:26:45 hip: exercises pmadden Not available 1 10/11/2022 12:26:45 hip flexor strain: rehab exercises pmadden Not available 08/11/2023 12:26:45 stretching: exercises pmadden Not available 08/11/2023 12:26:45 Medications (OTC , herbal therapies, supplements) reviewed and reconciled with patient and or caregiver, including potential side effects, drug interactions, instructions, and the consequences of not taking medication. Reviewed potential barriers to medication adherence, such as side effects from medication or cost of medication. pmadden Not available 08/11/2023 12:07:53 02/09/2024 [id number] advance care planning: care instructions pmadden Not available 02/09/2024 12:00:35 preventing falls : care instructions pmadden Not available 02/09/2024 12:00:35 well visit, over 65: care instructions pmadden Not available 02/09/2024 12:00:35 thiamine (vitami n B1) pmadden Not available 02/09/2024 12:00:35 Prostate Cancer Screening pmadden Not available 02/09/2024 12:00:35 Medications (OTC , herbal therapies, supplements) reviewed and reconciled with patient and or caregiver, including potential side effects, drug interactions, instructions, and the consequences of not taking medication. Reviewed potential barriers to medication adherence, such as side effects from medication or cost of medication. pmadden Not available 02/09/2024 12:00:41 08/06/2024 [id number] Medications (OTC , herbal therapies, supplements) reviewed and reconciled with patient and or caregiver, including potential side effects, drug interactions, instructions, and the consequences of not taking medication. Reviewed potential barriers to medication adherence, such as side effects from medication or cost of medication. pmadden Not available 08/06/2024 11:52:34 03/07/2025 [id number] preventing falls : care instructions pmadden Not available 03/07/2025 17:33:21 well visit, over 65: care instructions pmadden Not available 03/07/2025 17:33:21 Prostate Cancer Screening pmadden Not available 03/07/2025 17:33:22 Medications (OTC , herbal therapies, supplements) reviewed and reconciled with patient and or caregiver, including potential side effects, drug interactions, instructions, and the consequences of not taking medication. Reviewed potential barriers to medication adherence, such as side effects from medication or cost of medication. pmadden Not available 03/07/2025 17:33:38 09/03/2025 [id number] constipation: care instructions pmadden Not available 09/03/2025 [...] Not available 09/03/2025 11:50:23 Reason for Referral Physical Medicine And Rehabi litation Referral for Disorder of right sciatic nerve Referring Physician: Martha Asher, Internal Medicine, Encounter Date: 03/07/2025 General Surgeon Referral for Left inguinal hernia Referring Physician: Martha Asher, Internal Medicine, Encounter Date: 09/03/2025 Results Created Date Observation Date Name Description Value Unit Range Abnormal Flag Note LastModifiedBy Organization Detail LastModifiedTime 02/14/2002/15/2024 CBC WITH DIFFE RENTI AL/PL ATELE T WBC 5.5 x10e3 /uL 3.4-10 .8 Not Available [facility] ([facility]) [address] [place], [address], 02/17/2024 18:05:56 02/14/20 24 02/15/2024 CBC WITH DIFFE RENTI AL/PL ATELE T RBC 4.03 x10e6 /uL 4.14-5 .80 below low normal Not Available [facility] ([facility]) [address] [place], [address], 02/17/2024 18:05:56 02/14/20 24 02/15/2024 CBC WITH DIFFE RENTI AL/PL ATELE T hemoglobin 13.5 g/dL 13.0-1 7.7 Not Available [facility] ([facility]) [address] [place], [address], 02/17/2024 18:05:56 02/14/20 24 02/15/2024 CBC WITH DIFFE RENTI AL/PL ATELE T hematocrit 40.8 % 37.5-5 1.0 Not Available [facility] ([facility]) [address] [place], [address], 02/17/2024 18:05:56 02/14/20 24 02/15/2024 CBC WITH DIFFE RENTI AL/PL ATELE T MCV 101 fL 79-97 above high normal Not Available [facility] ([facility]) [address] [place], [address], 02/17/2024 18:05:56 02/14/20 24 02/15/2024 CBC WITH DIFFE RENTI AL/PL ATELE T MCH 33.5 pg 26.6-3 3.0 above high normal Not Available [facility] ([facility]) [address] [place], [address], 02/17/2024 18:05:56 02/14/2002/15/2024 CBC WITH DIFFE RENTI AL/PL ATELE T MCHC 33.1 g/dL 31.5-3 5.7 Not Available [facility] ([facility]) [address], [place], [address], 02/17/2024 18:05:56 02/14/20 24 02/15/2024 CBC WITH DIFFE RENTI AL/PL ATELE T RDW 11.8 % 11.6-1 5.4 Not Available [facility] ([facility]) [address], [place], [address], 02/17/2024 18:05:56 02/14/2002/15/2024 CBC WITH DIFFE RENTI AL/PL ATELE T platelets 207 x10e3 /uL 150-45 0 Not Available [facility] ([facility]) [address] [place], [address], 02/17/2024 18:05:56 02/14/20 24 02/15/2024 CBC WITH DIFFE RENTI AL/PL ATELE T neutrophils 53 % not estab. Not Available [facility] ([facility]) [address] [place], [address], 02/17/2024 18:05:56 02/14/2016 0202/15/2024 CBC WITH DIFFE RENTI AL/PL ATELE T lymphs 30 % not estab. Not Available [facility] ([facility]) [address] [place], [address], 02/17/2024 18:05:56 02/14/20 24 02/15/2024 CBC WITH DIFFE RENTI AL/PL ATELE T monocytes 10 % not estab. Not Available [facility] ([facility]) [address], [place], [address], 02/17/2024 18:05:56 02/14/20 24 02/15/2024 CBC WITH DIFFE RENTI AL/PL ATELE T eos 6 % not estab. Not Available [facility] ([facility]) [address], [place], [address], 02/17/2024 18:05:56 02/14/20 24 02/15/2024 CBC WITH DIFFE RENTI AL/PL ATELE T basos 1 % not estab. Not Available [facility] ([facility]) [address] [place], [address], 02/17/2024 18:05:56 02/14/20 24 02/15/2024 CBC WITH DIFFE RENTI AL/PL ATELE T immature cells ROLL EDGE STITCHER HAND Not Available [facility] ([facility]) [address] [place], [address], 02/17/2024 18:05:56 02/14/20 24 02/15/2024 CBC WITH DIFFE RENTI AL/PL ATELE T neutrophils (absolute) 2.9 x10e3 /uL 1.4-7. 0 Not Available [facility] ([facility]) [address] [place], [address], 02/17/2024 18:05:56 02/14/20 24 02/15/2024 CBC WITH DIFFE RENTI AL/PL ATELE T lymphs (absolute) 1.7 x10e3 /uL 0.7-3. 1 Not Available [facility] ([facility]) [address], [place], [address], 02/17/2024 18:05:56 02/14/20 24 02/15/2024 CBC WITH DIFFE RENTI AL/PL ATELE T monocytes(ab solute) 0.6 x10e3 /uL 0.1-0. 9 Not Available [facility] ([facility]) [address], [place], [address], 02/17/2024 18:05:56 02/14/20 24 02/15/2024 CBC WITH DIFFE RENTI AL/PL ATELE T eos (absolute) 0.3 x10e3 /uL 0.0-0. 4 Not Available [facility] ([facility]) [address], [place], [address], 02/17/2024 18:05:56 02/14/20 24 02/15/2024 CBC WITH DIFFE RENTI AL/PL ATELE T baso (absolute) 0.0 x10e3 /uL 0.0-0. 2 Not Available [facility] ([facility]) [address], [place], [address], 02/17/2024 18:05:56 02/14/20 24 02/15/2024 CBC WITH DIFFE RENTI AL/PL ATELE T immature granulocytes 0 % not estab. Not Available [facility] ([facility]) [address], [place], [address], 02/17/2024 18:05:56 02/14/20 24 02/15/2024 CBC WITH DIFFE RENTI AL/PL ATELE T immature grans (abs) 0.0 x10e3 /uL 0.0-0. 1 Not Available [facility] ([facility]) [address], [place], [address], 02/17/2024 18:05:56 02/14/20 24 02/15/2024 CBC WITH DIFFE RENTI AL/PL ATELE T NRBC ROLL [employer]ITCHER HAND Not Available [facility] ([facility]) [address], [place], [address], 02/17/2024 18:05:56 02/14/20 24 02/15/2024 CBC WITH DIFFE RENTI AL/PL ATELE T hematology comments: ROLL EDGE STITCHER HAND Not Available [facility] ([facility]) [address], [place], [address], 02/17/2024 18:05:56 02/14/20 24 02/15/2024 COMP. METAB OLIC PANEL (14) glucose 95 mg/dL 70-99 Not Available [facility] ([facility]) [address] [place], [address], 02/17/2024 18:05:57 02/14/20 24 02/15/2024 COMP. METAB OLIC PANEL (14) BUN 22 mg/dL 8-27 Not Available [facility] ([facility]) [address] [place], [address], 02/17/2024 18:05:57 02/14/20 24 02/15/2024 COMP. METAB OLIC PANEL (14) creatinine 1.22 mg/dL 0.76-1 .27 Not Available [facility] ([facility]) [address] [place], [address], 02/17/2024 18:05:57 02/14/20 24 02/15/2024 COMP. METAB OLIC PANEL (14) eGFR 62 mL/mi n/1.7 3 >59 Not Available [facility] ([facility]) [address] [place], [address], 02/17/2024 18:05:57 02/14/20 24 02/15/2024 COMP. METAB OLIC PANEL (14) BUN/creatini ne ratio 18 10-24 Not Available [facility] ([facility]) [address] [facility] [place], [address], 02/17/2024 18:05:57 02/14/20 24 02/15/2024 COMP. METAB OLIC PANEL (14) sodium 140 mmol/ L 134-14 4 Not Available [facility] ([facility]) [address] [place], [address], 02/17/2024 18:05:57 02/14/20 24 02/15/2024 COMP. METAB OLIC PANEL (14) potassium 4.5 mmol/ L 3.5-5. 2 Not Available [facility] ([facility]) [address] [place], [address], 02/17/2024 18:05:57 02/14/20 24 02/15/2024 COMP. METAB OLIC PANEL (14) chloride 104 mmol/ L 96-106 Not Available [facility] ([facility]) [address] [place], [address], 02/17/2024 18:05:57 02/14/20 24 02/15/2024 COMP. METAB OLIC PANEL (14) carbon dioxide, total 24 mmol/ L 20-29 Not Available [facility] ([facility]) [address] [place], [address], 02/17/2024 18:05:57 02/14/20 24 02/15/2024 COMP. METAB OLIC PANEL (14) calcium 9.6 mg/dL 8.6-10 .2 Not Available [facility] ([facility]) [address] [place], [address], 02/17/2024 18:05:57 02/14/20 24 02/15/2024 COMP. METAB OLIC PANEL (14) protein, total 6.7 g/dL 6.0-8. 5 Not Available [facility] ([facility]) [address] [place], [address], 02/17/2024 18:05:57 02/14/20 24 02/15/2024 COMP. METAB OLIC PANEL (14) albumin 4.2 g/dL 3.8-4. 8 Not Available [facility] ([facility]) [address], [place], [address], 02/17/2024 18:05:57 02/14/20 24 02/15/2024 COMP. METAB OLIC PANEL (14) globulin, total 2.5 g/dL 1.5-4. 5 Not Available [facility] ([facility]) [address], [place], [address], 02/17/2024 18:05:57 02/14/20 24 02/15/2024 COMP. METAB OLIC PANEL (14) A/G ratio 1.7 1.2-2. 2 Not Available [facility] ([facility]) [address], [place], [address], 02/17/2024 18:05:57 02/14/20 24 02/15/2024 COMP. METAB OLIC PANEL (14) bilirubin, total 0.8 mg/dL 0.0-1. 2 Not Available [facility] ([facility]) [address], [place], [address], 02/17/2024 18:05:57 02/14/20 24 02/15/2024 COMP. METAB OLIC PANEL (14) alkaline phosphatase 95 IU/L 44-121 Not Available [facility] ([facility]) [address], [place], [address], 02/17/2024 18:05:57 02/14/20 24 02/15/2024 COMP. METAB OLIC PANEL (14) AST (SGOT) 20 IU/L 0-40 Not Available [facility] ([facility]) [address] [place], [address], 02/17/2024 18:05:57 02/14/20 24 02/15/2024 COMP. METAB OLIC PANEL (14) ALT (SGPT) 11 IU/L 0-44 Not Available [facility] ([facility]) [address] [place], [address], 02/17/2024 18:05:57 02/14/20 24 02/15/2024 LIPID PANEL cholesterol, total 178 mg/dL 100-19 9 Not Available [facility] ([facility]) [address] [place], [address], 02/17/2024 18:05:58 02/14/20 24 02/15/2024 LIPID PANEL triglyceride s 92 mg/dL 0-149 Not Available [facility] ([facility]) [address] [place], [address], 02/17/2024 18:05:58 02/14/20 24 02/15/2024 LIPID PANEL HDL cholesterol 58 mg/dL >39 Not Available [facility] ([facility]) [address] [place], [address], 02/17/2024 18:05:58 02/14/20 24 02/15/2024 LIPID PANEL VLDL cholesterol carlos 17 mg/dL 5-40 Not Available [facility] ([facility]) [address] [place], [address], 02/17/2024 18:05:58 02/14/20 24 02/15/2024 LIPID PANEL LDL chol calc ([facility]) 103 mg/dL 0-99 above high normal Not Available [facility] ([facility]) [address] [place], [address], 02/17/2024 18:05:58 02/14/20 24 02/15/2024 LIPID PANEL comment: ROLL EDGE STITCHER HAND Not Available [facility] ([facility]) [address] [place], [address], 02/17/2024 18:05:58 02/14/20 24 02/15/2024 IRON AND TIBC iron bind.cap.(TI BC) 319 ug/dL 250-45 0 Not Available [facility] ([facility]) [address] [place], [address], 02/17/2024 18:05:58 02/14/20 24 02/15/2024 IRON AND TIBC UIBC 257 ug/dL 111-34 3 Not Available [facility] ([facility]) [address] [place], [address], 02/17/2024 18:05:58 02/14/20 24 02/15/2024 IRON AND TIBC iron 62 ug/dL 38-169 Not Available [facility] ([facility]) [address] [place], [address], 02/17/2024 18:05:58 02/14/20 24 02/15/2024 IRON AND TIBC iron saturation 19 % 15-55 Not Available [facility] ([facility]) [address] [place], [address], 02/17/2024 18:05:58 02/14/2002/15/2024 CK, TOTAL creatine kinase,total 194 U/L 41-331 Not Available [facility] ([facility]) [address] [place], [address], 02/17/2024 18:05:59 02/14/2002/15/2024 HEMOG LOBIN A1C hemoglobin A1C 6.0 % 4.8-5. 6 above high normal Predi abete s: 5.7 - 6.4 Diabe linda: >6.4 Glyce loan contr ol for adult s with diabe linda: <7.0 Not Available [facility] ([facility]) [address] [place], [address], 02/17/2024 18:06:00 02/14/20 24 02/15/2024 FOLAT E (FOLI C ACID) , SERUM folate (folic acid), serum 6.8 NG/mL >3.0 A serum folat e marina ntrat ion of less than 3.1 ng/mL is consi dered to repre sent clini carlos defic iency . Not Available [facility] ([facility]) [address], [place], [address], 02/17/2024 18:06:00 02/14/20 24 02/15/2024 PROST ATE-S PECIF IC AG prostate specific Ag 0.9 NG/mL 0.0-4. 0 Theresa ECLIA metho dolog y. Accor ding to the Ameri can [employer] g[employer] i[employer] n, Serum PSA shoul d decre ase and remai n at undet ectab le level s after radic al prost atect mary. The AUA defin es bioch emica l recur rence as an initi al PSA value 0.2 ng/mL or great er follo wed by a subse quent confi rmato ry PSA value 0.2 ng/mL or great er. Value s obtai vinay with diffe rent assay metho ds or kits canno t be used inter vazquez eably . Resul ts canno t be inter prete d as absol telida evide nce of the prese nce or absen ce of alan hinson se. Not Available [facility] ([facility]) [address], [place], [address], 02/17/2024 18:06:01 02/14/20 24 02/17/2024 METHY LMALO RICHI ACID, SERUM methylmaloni c acid, serum 248 nmol/ L 0-378 Not Available [facility] ([facility]) [address] [place], [address], 02/17/2024 18:06:01 02/14/20 24 02/15/2024 URIC ACID uric acid 7.7 mg/dL 3.8-8. 4 Thera peuti c targe t for gout patie nts: <6.0 Not Available [facility] ([facility]) [address], [place], [address], 02/17/2024 18:06:02 02/14/20 24 02/15/2024 VITAM IN B12 vitamin B12 413 pg/mL 232-12 45 Not Available [facility] ([facility]) [address] [place], [address], 02/17/2024 18:06:02 02/14/20 24 02/15/2024 ARTHUR TIN ferritin 423 NG/mL 30-400 above high normal Not Available [facility] ([facility]) [address] [place], [address], 02/17/2024 18:06:03 08/06/20 24 08/06/2024 BASIC METAB OLIC PANEL (8) glucose 91 mg/dL 70-99 normal Not Available [facility] ([facility]) [address] [place], [address], 08/07/2024 06:07:52 08/06/20 24 08/06/2024 BASIC METAB OLIC PANEL (8) BUN 22 mg/dL 8-27 normal Not Available [facility] ([facility]) [address] [place], [address], 08/07/2024 06:07:52 08/06/20 24 08/06/2024 BASIC METAB OLIC PANEL (8) creatinine 1.24 mg/dL 0.76-1 .27 normal Not Available [facility] ([facility]) [address] [place], [address], 08/07/2024 06:07:52 08/06/20 24 08/06/2024 BASIC METAB OLIC PANEL (8) eGFR 61 mL/mi n/1.7 3 >59 normal Not Available [facility] ([facility]) [address] [place], [address], 08/07/2024 06:07:52 08/06/20 24 08/06/2024 BASIC METAB OLIC PANEL (8) BUN/creatini ne ratio 18 10-24 normal Not Available [facility] ([facility]) [address] [place], [address], 08/07/2024 06:07:52 08/06/20 24 08/06/2024 BASIC METAB OLIC PANEL (8) sodium 139 mmol/ L 134-14 4 normal Not Available [facility] ([facility]) [address] [place], [address], 08/07/2024 06:07:52 08/06/20 24 08/06/2024 BASIC METAB OLIC PANEL (8) potassium 4.7 mmol/ L 3.5-5. 2 normal Not Available [facility] ([facility]) [address] [place], [address], 08/07/2024 06:07:52 08/06/20 24 08/06/2024 BASIC METAB OLIC PANEL (8) chloride 102 mmol/ L 96-106 normal Not Available [facility] ([facility]) [address], [place], [address], 08/07/2024 06:07:52 08/06/20 24 08/06/2024 BASIC METAB OLIC PANEL (8) carbon dioxide, total 23 mmol/ L 20-29 normal Not Available [facility] ([facility]) [address] [place], [address], 08/07/2024 06:07:52 08/06/20 24 08/06/2024 BASIC METAB OLIC PANEL (8) calcium 10.2 mg/dL 8.6-10 .2 normal Not Available [facility] ([facility]) [address] [place], [address], 08/07/2024 06:07:52 08/06/20 24 08/06/2024 HEMOG LOBIN A1C hemoglobin A1C 6.0 % 4.8-5. 6 above high normal Predi abete s: 5.7 - 6.4 Diabe linda: >6.4 Glyce loan contr ol for adult s with diabe linda: <7.0 Not Available [facility] ([facility]) [address] [place], [address], 08/07/2024 06:07:53 03/14/20 25 03/15/2025 CBC WITH DIFFE RENTI AL/PL ATELE T WBC 5.8 x10e3 /uL 3.4-10 .8 normal Not Available [facility] ([facility]) [address] [place], [address], 03/15/2025 08:06:47 03/14/20 25 03/15/2025 CBC WITH DIFFE RENTI AL/PL ATELE T RBC 3.72 x10e6 /uL 4.14-5 .80 below low normal Not Available [facility] ([facility]) [address] [place], [address], 03/15/2025 08:06:47 03/14/20 25 03/15/2025 CBC WITH DIFFE RENTI AL/PL ATELE T hemoglobin 13.1 g/dL 13.0-1 7.7 normal Not Available [facility] ([facility]) [address] [place], [address], 03/15/2025 08:06:47 03/14/20 25 03/15/2025 CBC WITH DIFFE RENTI AL/PL ATELE T hematocrit 38.6 % 37.5-5 1.0 normal Not Available [facility] ([facility]) [address] [place], [address], 03/15/2025 08:06:47 03/14/20 25 03/15/2025 CBC WITH DIFFE RENTI AL/PL ATELE T MCV 104 fL 79-97 above high normal Not Available [facility] ([facility]) [address] [place], [address], 03/15/2025 08:06:47 03/14/20 25 03/15/2025 CBC WITH DIFFE RENTI AL/PL ATELE T MCH 35.2 pg 26.6-3 3.0 above high normal Not Available [facility] ([facility]) [address] [place], [address], 03/15/2025 08:06:47 03/14/20 25 03/15/2025 CBC WITH DIFFE RENTI AL/PL ATELE T MCHC 33.9 g/dL 31.5-3 5.7 normal Not Available [facility] ([facility]) [address] [place], [address], 03/15/2025 08:06:47 03/14/20 25 03/15/2025 CBC WITH DIFFE RENTI AL/PL ATELE T RDW 12.1 % 11.6-1 5.4 Not Available [facility] ([facility]) [address] [place], [address], 03/15/2025 08:06:47 03/14/20 25 03/15/2025 CBC WITH DIFFE RENTI AL/PL ATELE T platelets 208 x10e3 /uL 150-45 0 normal Not Available [facility] ([facility]) [address] [place], [address], 03/15/2025 08:06:47 03/14/20 25 03/15/2025 CBC WITH DIFFE RENTI AL/PL ATELE T neutrophils 47 % not estab. normal Not Available [facility] ([facility]) [address] [place], [address], 03/15/2025 08:06:47 03/14/20 25 03/15/2025 CBC WITH DIFFE RENTI AL/PL ATELE T lymphs 32 % not estab. normal Not Available [facility] ([facility]) [address] [place], [address], 03/15/2025 08:06:47 03/14/20 25 03/15/2025 CBC WITH DIFFE RENTI AL/PL ATELE T monocytes 11 % not estab. normal Not Available [facility] ([facility]) [address] [place], [address], 03/15/2025 08:06:47 03/14/20 25 03/15/2025 CBC WITH DIFFE RENTI AL/PL ATELE T eos 9 % not estab. normal Not Available [facility] ([facility]) [address] [place], [address], 03/15/2025 08:06:47 03/14/20 25 03/15/2025 CBC WITH DIFFE RENTI AL/PL ATELE T basos 1 % not estab. normal Not Available [facility] ([facility]) [address], [place], [address], 03/15/2025 08:06:47 03/14/20 25 03/15/2025 CBC WITH DIFFE RENTI AL/PL ATELE T immature cells ROLL [employer] HAND Not Available [facility] ([facility]) [address] [place], [address], 03/15/2025 08:06:47 03/14/20 25 03/15/2025 CBC WITH DIFFE RENTI AL/PL ATELE T neutrophils (absolute) 2.8 x10e3 /uL 1.4-7. 0 normal Not Available [facility] ([facility]) [address] [place], [address], 03/15/2025 08:06:47 03/14/20 25 03/15/2025 CBC WITH DIFFE RENTI AL/PL ATELE T lymphs (absolute) 1.8 x10e3 /uL 0.7-3. 1 normal Not Available [facility] ([facility]) [address] [place], [address], 03/15/2025 08:06:47 03/14/20 25 03/15/2025 CBC WITH DIFFE RENTI AL/PL ATELE T monocytes(ab solute) 0.6 x10e3 /uL 0.1-0. 9 normal Not Available [facility] ([facility]) [address], [place], [address], 03/15/2025 08:06:47 03/14/20 25 03/15/2025 CBC WITH DIFFE RENTI AL/PL ATELE T eos (absolute) 0.5 x10e3 /uL 0.0-0. 4 above high normal Not Available [facility] ([facility]) [address], [place], [address], 03/15/2025 08:06:47 03/14/20 25 03/15/2025 CBC WITH DIFFE RENTI AL/PL ATELE T baso (absolute) 0.0 x10e3 /uL 0.0-0. 2 normal Not Available [facility] ([facility]) [address], [place], [address], 03/15/2025 08:06:47 03/14/20 25 03/15/2025 CBC WITH DIFFE RENTI AL/PL ATELE T immature granulocytes 0 % not estab. Not Available [facility] ([facility]) [address], [place], [address], 03/15/2025 08:06:47 03/14/20 25 03/15/2025 CBC WITH DIFFE RENTI AL/PL ATELE T immature grans (abs) 0.0 x10e3 /uL 0.0-0. 1 Not Available [facility] ([facility]) [address], [place], [address], 03/15/2025 08:06:47 03/14/20 25 03/15/2025 CBC WITH DIFFE RENTI AL/PL ATELE T NRBC [employer] Not Available [facility] ([facility]) [address], [place], [address], 03/15/2025 08:06:47 03/14/20 25 03/15/2025 CBC WITH DIFFE RENTI AL/PL ATELE T hematology comments: [employer] HAND Not Available [facility] ([facility]) [address] [place], [address], 03/15/2025 08:06:47 03/14/20 25 03/15/2025 COMP. METAB OLIC PANEL (14) glucose 103 mg/dL 70-99 above high normal Not Available [facility] ([facility]) [address] [place], [address], 03/15/2025 08:06:48 03/14/20 25 03/15/2025 COMP. METAB OLIC PANEL (14) BUN 28 mg/dL 8-27 above high normal Not Available [facility] ([facility]) [address] [place], [address], 03/15/2025 08:06:48 03/14/20 25 03/15/2025 COMP. METAB OLIC PANEL (14) creatinine 1.21 mg/dL 0.76-1 .27 normal Not Available [facility] ([facility]) [address] [place], [address], 03/15/2025 08:06:48 03/14/20 25 03/15/2025 COMP. METAB OLIC PANEL (14) eGFR 62 mL/mi n/1.7 3 >59 normal Not Available [facility] ([facility]) [address] [place], [address], 03/15/2025 08:06:48 03/14/20 25 03/15/2025 COMP. METAB OLIC PANEL (14) BUN/creatini ne ratio 23 10-24 normal Not Available [facility] ([facility]) [address] [place], [address], 03/15/2025 08:06:48 03/14/20 25 03/15/2025 COMP. METAB OLIC PANEL (14) sodium 141 mmol/ L 134-14 4 normal Not Available [facility] ([facility]) [address] [place], [address], 03/15/2025 08:06:48 03/14/20 25 03/15/2025 COMP. METAB OLIC PANEL (14) potassium 4.9 mmol/ L 3.5-5. 2 normal Not Available [facility] ([facility]) [address] [place], [address], 03/15/2025 08:06:48 03/14/20 25 03/15/2025 COMP. METAB OLIC PANEL (14) chloride 104 mmol/ L 96-106 normal Not Available [facility] ([facility]) [address] [place], [address], 03/15/2025 08:06:48 03/14/20 25 03/15/2025 COMP. METAB OLIC PANEL (14) carbon dioxide, total 25 mmol/ L 20-29 normal Not Available [facility] ([facility]) [address] [place], [address], 03/15/2025 08:06:48 03/14/20 25 03/15/2025 COMP. METAB OLIC PANEL (14) calcium 9.9 mg/dL 8.6-10 .2 normal Not Available [facility] ([facility]) [address] [place], [address], 03/15/2025 08:06:48 03/14/20 25 03/15/2025 COMP. METAB OLIC PANEL (14) protein, total 6.7 g/dL 6.0-8. 5 normal Not Available [facility] ([facility]) [address] [place], [address], 03/15/2025 08:06:48 03/14/20 25 03/15/2025 COMP. METAB OLIC PANEL (14) albumin 4.3 g/dL 3.8-4. 8 normal Not Available [facility] ([facility]) [address] [place], [address], 03/15/2025 08:06:48 03/14/20 25 03/15/2025 COMP. METAB OLIC PANEL (14) globulin, total 2.4 g/dL 1.5-4. 5 Not Available [facility] ([facility]) [address] [place], [address], 03/15/2025 08:06:48 03/14/20 25 03/15/2025 COMP. METAB OLIC PANEL (14) bilirubin, total 0.7 mg/dL 0.0-1. 2 normal Not Available [facility] ([facility]) [address] [place], [address], 03/15/2025 08:06:48 03/14/20 25 03/15/2025 COMP. METAB OLIC PANEL (14) alkaline phosphatase 89 IU/L 44-121 normal Not Available [facility] ([facility]) [address] [place], [address], 03/15/2025 08:06:48 03/14/20 25 03/15/2025 COMP. METAB OLIC PANEL (14) AST (SGOT) 17 IU/L 0-40 normal Not Available [facility] ([facility]) [address] [place], [address], 03/15/2025 08:06:48 03/14/20 25 03/15/2025 COMP. METAB OLIC PANEL (14) ALT (SGPT) 13 IU/L 0-44 normal Not Available [facility] ([facility]) [address] [place], [address], 03/15/2025 08:06:48 03/14/20 25 03/15/2025 LIPID PANEL cholesterol, total 172 mg/dL 100-19 9 normal Not Available [facility] ([facility]) [address] [place], [address], 03/15/2025 08:06:49 03/14/20 25 03/15/2025 LIPID PANEL triglyceride s 78 mg/dL 0-149 normal Not Available [facility] ([facility]) [address] [place], [address], 03/15/2025 08:06:49 03/14/20 25 03/15/2025 LIPID PANEL HDL cholesterol 54 mg/dL >39 normal Not Available [facility] ([facility]) [address] [place], [address], 03/15/2025 08:06:49 03/14/20 25 03/15/2025 LIPID PANEL VLDL cholesterol carlos 15 mg/dL 5-40 Not Available [facility] ([facility]) [address] [place], [address], 03/15/2025 08:06:49 03/14/20 25 03/15/2025 LIPID PANEL LDL chol calc ([facility]) 103 mg/dL 0-99 above high normal Not Available [facility] ([facility]) [address] [place], [address], 03/15/2025 08:06:49 03/14/20 25 03/15/2025 LIPID PANEL LDL calc comment: [employer] Not Available [facility] ([facility]) [address] [place], [address], 03/15/2025 08:06:49 03/14/20 25 03/15/2025 IRON AND TIBC iron bind.cap.(TI BC) 309 ug/dL 250-45 0 normal Not Available [facility] ([facility]) [address] [place], [address], 03/15/2025 08:06:49 03/14/20 25 03/15/2025 IRON AND TIBC UIBC 212 ug/dL 111-34 3 normal Not Available [facility] ([facility]) [address] [place], [address], 03/15/2025 08:06:49 03/14/20 25 03/15/2025 IRON AND TIBC iron 97 ug/dL 38-169 normal Not Available [facility] ([facility]) [address] [place], [address], 03/15/2025 08:06:49 03/14/20 25 03/15/2025 IRON AND TIBC iron saturation 31 % 15-55 normal Not Available [facility] ([facility]) [address] [place], [address], 03/15/2025 08:06:49 03/14/20 25 03/15/2025 CK, TOTAL creatine kinase,total 142 U/L 41-331 normal Not Available [facility] ([facility]) [address] [place], [address], 03/15/2025 08:06:50 03/14/20 25 03/15/2025 HEMOG LOBIN A1C hemoglobin A1C 5.8 % 4.8-5. 6 above high normal Predi abete s: 5.7 - 6.4 Diabe linda: >6.4 Glyce loan contr ol for adult s with diabe linda: <7.0 Not Available [facility] ([facility]) [address], [place], [address], 03/15/2025 08:06:51 03/14/20 25 03/15/2025 FOLAT E (FOLI C ACID) , SERUM folate (folic acid), serum 8.9 NG/mL >3.0 normal A serum folat e marina ntrat ion of less than 3.1 ng/mL is consi dered to repre sent clini carlos defic iency . Not Available [facility] ([facility]) [address] [place], [address], 03/15/2025 08:06:52 03/14/20 25 03/15/2025 PROST ATE-S PECIF IC AG prostate specific Ag 1.2 NG/mL 0.0-4. 0 normal Theresa ECLIA metho dolog y. Accor ding to the Ameri can Urolo gical Assoc iatio n, Serum PSA shoul d decre ase and remai n at undet ectab le level s after radic al prost atect mary. The AUA defin es bioch emica l recur rence as an initi al PSA value 0.2 ng/mL or great er follo wed by a subse quent confi rmato ry PSA value 0.2 ng/mL or great er. Value s obtai vinay with diffe rent assay metho ds or kits canno t be used inter vazquez eably . Resul ts canno t be inter prete d as absol telida evide nce of the prese nce or absen ce of [facility] disea se. Not Available [facility] ([facility]) [address], [place], [address], 03/15/2025 08:06:53 03/14/20 25 03/15/2025 VITAM IN D, 25-HY DROXY vitamin D, 25-hydroxy 20.9 NG/mL 30.0-1 00.0 below low normal Vitam in D defic iency has been defin ed by the Insti tute of Medic ine and an Endoc rine Socie ty pract ice guide line as a level of serum 25-OH vitam in D less than 20 ng/mL (1,2) . The Endoc rine Socie ty went on to furth er defin e vitam in D insuf ficie ncy as a level betwe en 21 and 29 ng/mL (2). 1. IOM (Inst itute of Medic ine). 2009. Dieta ry refer ence intak es for calci um and D. Simon [place]: The Natio nal [employer] [facility] Press . 2. Rina caba [place], Johana saucedo [place], Leyla off-F errar i VALERA, et al. Evalu ation , treat ment, and preve ntion of vitam in D defic iency : an Endoc rine Socie ty clini carlos pract ice guide line. JCEM. 2010; 96(7) :1911 -30. Not Available [facility] ([facility]) [address], [place], [address], 03/15/2025 08:06:54 03/14/20 25 03/15/2025 VITAM IN B12 vitamin B12 385 pg/mL 232-12 45 normal Not Available [facility] ([facility]) [address], [place], [address], 03/15/2025 08:06:54 03/14/20 25 03/15/2025 ARTHUR TIN ferritin 458 NG/mL 30-400 above high normal Not Available [facility] ([facility]) [address], [place], [address], 03/15/2025 08:06:55 10/01/19 25 colon oscop y No observ ation record ed. [email or web address] [facility] [address] [place], [address], 03/07/2025 16:01:06 Result Notes None recorded. Problems Name Problem SNOMED Code Status Onset Date Resolution Date Notes Provider Name and Address Organization Details Recorded Time Pain of shoulder region 39269527 Active Not Available [facility] 3 08:40:30 Fatigue 79994777 Completed 11/08/2016 EVETTE Saul, [facility] 7 10:09:26 Chest pain on exertion 19499137 Completed 11/08/2016 EVETTE Saul, [facility] 7 10:09:23 Adjustme nt disorder with depresse d mood 91498438 Active Not Available [facility] 3 08:40:30 Anemia 524876266 Active Not Available [facility] 3 08:40:30 Benign prostati c hyperpla kerry 581597519 Active Not Available [facility] 3 08:40:30 Elevated blood-pr essure reading without diagnosi s of hyperten arabella 190132283 Completed 01/19/2019 Quentin Bell MD 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 33340260 Active Not Available [facility] 3 08:40:30 Overweig ht 625608446 Active Not Available [facility] 3 08:40:30 Pruritus ani 91868675 Active Not Available [facility] 3 08:40:30 Disorder of skin and/or subcutan eous tissue 70303792 Active Not Available [facility] 3 08:40:30 Foot-michaela p 4677493 Active 1999 Not Available [facility] 3 08:40:30 Enthesop athy of knee 49010091 Completed 200705/06/2014 RECORDED 07/12/20 08 9:33AM BY CYNTHIA BARRERA ON/ADDEN DUM Not Available [facility] 4 05:28:25 Administ ration of bacteria l and viral vaccine Completed 200705/06/2014 RECORDED 07/12/20 08 9:56AM BY LEA BOWMAN, OFFICE VISIT Not Available [facility] 4 05:28:25 Enthesop athy of knee 45503045 Completed 200704/09/2014 RECORDED 07/12/20 08 9:33AM BY LEA BOWMAN, BLANQUITAATI ON/ADDEN DUM Not Available [facility] 4 14:19:07 Administ ration of bacteria l and viral vaccine Completed 200704/09/2014 RECORDED 07/12/20 08 9:56AM BY LEA BOWMAN, OFFICE VISIT Not Available [facility] 4 14:19:08 Disorder of bursa of shoulder region 47522235 Completed 200905/06/2014 RECORDED 08/17/20 10 3:46PM BY QUENTIN BELL MD, ANNOTATI ON/ADDEN DUM Not Available [facility] 4 05:28:25 Disorder of bursa of shoulder region 34677040 Completed 200904/09/2014 RECORDED 08/17/20 10 3:46PM BY QUENTIN BELL MD, ANNOTATI ON/ADDEN DUM Not Available [facility] 4 14:19:08 [facility] hyperten arabella 13001690 Completed 201105/06/2014 IMPRESSI ON: NO MEDS NOW; RECORDED 09/28/19 12 3:37PM BY DONNY PEPPER MA, ANNOTATI ON/ADDEN DUM EVETTE Wilson, [facility] 9 13:48:53 [facility]ia [facility] hyperten arabella 06721738 Completed 201104/09/2014 IMPRESSI ON: NO MEDS NOW; RECORDED 09/28/19 12 3:37PM BY DONNY PEPPER MA, ANNOTATI ON/ADDEN DUM EVETTE Wilson, [facility] 9 13:48:53 Hyperlip idemia 98479000 Completed 201104/09/2014 RECORDED 09/28/19 12 3:37PM BY DONNY PEPPER MA, ANNOTATI ON/ADDEN DUM Not Available [facility] 4 14:19:08 Screenin g for malignan t neoplasm of colon Completed 201205/06/2014 RECORDED 10/11/19 13 3:05PM BY DONNY PEPPER MA, ANNOTATI ON/ADDEN DUM Not Available [facility] 4 05:28:25 Screenin g procedur e Completed 201205/06/2014 RECORDED 10/11/19 13 3:05PM BY DONNY PEPPER MA, ANNOTATI ON/ADDEN DUM Not Available [facility] 4 05:28:25 Administ ration of viral vaccine Completed 201205/06/2014 RECORDED 10/11/19 13 3:05PM BY DONNY PEPPER MA, ANNOTATI ON/ADDEN DUM Not Available [facility] 4 05:28:25 Screenin g for malignan t neoplasm of colon Completed 201204/09/2014 RECORDED 10/11/19 13 3:05PM BY DONNY PEPPER MA, ANNOTATI ON/ADDEN DUM Not Available [facility] 4 14:19:07 Screenin g procedur e Completed 201204/09/2014 RECORDED 10/11/19 13 3:05PM BY DONNY PEPPER MA, ANNOTATI ON/ADDEN DUM Not Available [facility] 4 14:19:08 Administ ration of viral vaccine Completed 201204/09/2014 RECORDED 10/11/19 13 3:05PM BY DONNY PEPPER MA, ANNOTATI ON/ADDEN DUM Not Available [facility] 4 14:19:08 Low back pain 543894845 Completed 201205/06/2014 RECORDED 04/11/20 13 1:39PM BY DONNY PEPPER MA, ANNOTATI ON/ADDEN DUM Not Available [facility] 4 05:28:25 Low back pain 845472253 Completed 201204/09/2014 RECORDED 04/11/20 13 1:39PM BY DONNY PEPPER MA, ANNOTATI ON/ADDEN DUM Not Available [facility] 4 14:19:08 Malaise and fatigue 708689422 Completed 201305/06/2014 RECORDED 10/29/19 14 3:19PM BY DONNY PEPPER MA, ANNOTATI ON/ADDEN DUM Not Available [facility] 4 05:28:25 Malaise and fatigue 426805342 Completed 201304/09/2014 RECORDED 10/29/19 14 3:19PM BY DONNY PEPPER MA, ANNOTATI ON/ADDEN DUM Not Available [facility] 4 14:19:07 Adult health examinat ion Completed 201305/06/2014 RECORDED 01/30/20 14 11:03AM BY DONNY PEPPER MA, ANNOTATI ON/ADDEN DUM Not Available [facility] 4 05:28:25 Influenz a vaccine needed 82591683599 06 Completed 201305/06/2014 RECORDED 01/30/20 14 11:03AM BY DONNY PEPPER MA, ANNOTATI ON/ADDEN DUM Not Available [facility] 4 05:28:25 Adult health examinat ion Completed 201304/09/2014 RECORDED 01/30/20 14 11:03AM BY DONNY PEPPER MA, ANNOTATI ON/ADDEN DUM Not Available [facility] 4 14:19:07 Influenz a vaccine needed [id number] 06 Completed 201304/09/2014 RECORDED 01/30/20 14 11:03AM BY DONNY PEPPER MA, ANNOTATI ON/ADDEN DUM Not Available [facility] 4 14:19:07 Ex-smoke r 9335374 Active 2016 Not Available [facility] 3 08:40:30 Tubular adenomat ous polyp of colon 717078018 Active 2017 Not Available [facility] 3 08:40:30 Essentia l hyperten arabella 69093779 Active 2018 Not Available [facility] 3 08:40:30 Chronic low back pain 854150921 Active 2020 Not Available [facility] 3 08:40:30 History of polyp of colon 150726415 Active 2020 Not Available [facility] 3 08:40:30 Prediabe linda 602659294 Active 2020 Not Available [facility] 3 08:40:30 Demyelin ating disease of central nervous system 7482985 Active 2022 Not Available [facility] 3 08:40:30 Fever 735082468 Active 2022 Not Available [facility] 3 08:40:30 Pain in lower limb 19565345 Active 2022 Not Available [facility] 3 08:40:29 Cough 58937719 Completed 202202/09/2024 Martha Asher PA-C [address], [place], [address] , [facility] 4 11:42:45 Pain of multiple joints 53952415 Active 2022 Not Available [facility] 3 08:40:30 Multiple sclerosi s 11175782 Active 2022 Not Available [facility] 3 08:40:30 Gout 31322163 Active 2023 Martha Asher PA-C [address], [place], [address] , [facility] 4 11:52:11 Pain of right calf 74813083727 94216 Active 2024 Sindhu hugo [facility] 5 16:16:54 Disorder of right sciatic nerve 32386156361 9102 Active 2024 Sindhu hugo [facility] 5 17:33:55 Vitamin D deficien cy 82677598 Active 2024 Martha Asher PA-C [address], [place], [address] , [facility] 5 11:35:00 Chronic constipa tion 368458057 Active 2024 Martha Asher PA-C [address], [place], [address] , [facility] 5 11:49:50 Left inguinal hernia 426931900 Active 2024 Martha Asher PA-C [address], [place], [address] , [facility] 5 12:19:23 Problem Notes None recorded. Procedures Surgical History Date Name Laterality Status Provider Name and Address Organization Details Recorded Time 10/01/19 25 Colonoscopy completed Lin Valladares [facility] 10/01/2024 11:47:01 02/09/20 24 Advanced Care Planning completed Stephany Cannon MA [facility] 02/09/2024 11:11:59 01/06/20 21 Six-Item Cognitive Test completed Aleja Tobias MA [facility] 01/05/2021 11:21:51 01/20/20 19 Mini-Cog Test completed Ary Mora [facility] 01/19/2019 12:59:58 03/28/20 18 Colonoscopy completed Emily Gomez [facility] 03/30/2018 14:26:13 11/08/19 17 Fall Risk Assessment completed Donny Biggs MA [facility] 11/08/2016 10:16:02 11/08/19 17 Mini-Cog Test completed Donny Biggs MA [facility] 11/08/2016 10:18:03 11/24/19 16 Unlisted misc px dx nuc med completed Malathi Goodman [facility] 11/27/2015 10:01:39 11/06/19 16 Fall Risk Assessment completed Donny Biggs MA [facility] 11/06/2015 13:17:27 11/06/19 16 Mini-Cog Test completed Donny Biggs MA [facility] 11/06/2015 13:18:48 11/06/19 16 Advanced Care Planning completed Donny Biggs MA [facility] 11/06/2015 13:04:07 11/05/19 15 Fall Risk Assessment completed Shanel Jara MA [facility] 11/05/2014 11:18:54 11/05/19 15 Mini-Cog Test completed Shanel Jara [facility] 11/05/2014 11:18:54 09/26/18 81 [facility] 01/07/2022 13:15:57 Appendectomy completed Shanel Jara [facility] 11/05/2014 09:16:11 Cataract Surgery completed [facility] 01/07/2022 13:14:26 Imaging Results None recorded. Procedure Notes None recorded. Medical Equipment None Reported. Allergies Allergen ID Allergen Name Allergen Category Reaction Reaction Severity Criticality Documentation Date Start Date Code Code System Note Provider Name and Address Organization Details Recorded Time 5525 Zocor medicatio n Not available Not available Not available 04/09/20142012 04292 3 RxNorm COMME NT: RECOR DED 04/11 1:41P M BY DEANDRA FRANKLIN MA, OFFIC E VISIT ; Not Available [facility] 4 13:23:18 Medications Name Sig Start Date [...] 10/11 completed RECORDED 10/11/19 13 3:12PM BY DONNY PEPPER MA, OFFICE VISIT; Not Available Not [...] 04/11 completed RECORDED 10/29/19 14 3:24PM BY DONNY PEPPER MA, OFFICE VISIT; Not Available Not [...] Not Available Not Available Fluzone High-Dose Quad 2019- (PF) 240 mcg/0.7 mL IM syringe PHARMACY ADMINIST ERED 01/05 completed Not Available Not Available Not Available Vitals Date Recorded Body height Body mass index (BMI) Body weight Oxygen saturation Heart rate Body temperature Systolic And Diastolic Provider Name and Address Organization Details Last Updated DateTime 4 184.15 cm 25.2 kg/m2 70131.1 7 g 99 % 76 /min 98 [degF] 126/64 mm[Hg] Stephany Cannon MA [facility] 4 11:18:20 Date Recorded Body height Body mass index (BMI) Body weight Heart rate Oxygen saturation Body temperature Systolic And Diastolic Provider Name and Address Organization Details Last Updated DateTime 5 184.15 cm 25.1 kg/m2 76402.5 7 g 70 /min 98 % 97.9 [degF] 133/75 mm[Hg] Jannette Juarez MA [facility] 5 15:40:17 Date Recorded Body height Body mass index (BMI) Body weight Heart rate Oxygen saturation Body temperature Systolic And Diastolic Provider Name and Address Organization Details Last Updated DateTime 4 184.15 cm 25 kg/m2 44470.7 7 g 83 /min 98 % 97.6 [degF] 133/61 mm[Hg] Zhanna Mcclelland MA [facility] 4 11:04:19 Date Recorded Systolic And Diastolic Provider Name and Address Organization Details Last Updated DateTime 08/11/2023 128/70 mm[Hg] Martha Asher PA-C [address], [address], [facility] 08/11/2023 12:23:55 Date Recorded Body height Body mass index (BMI) Body weight Oxygen saturation Body temperature Heart rate Systolic And Diastolic Provider Name and Address Organization Details Last Updated DateTime 3 184.15 cm 25.5 kg/m2 27672.1 4 g 98 % 98 [degF] 62 /min 136/62 mm[Hg] Donny reilly MA [facility] 3 11:28:28 Date Recorded Body height Body mass index (BMI) Body weight Heart rate Oxygen saturation Body temperature Systolic And Diastolic Provider Name and Address Organization Details Last Updated DateTime 5 184.15 cm 25.3 kg/m2 94887.9 6 g 71 /min 96 % 98.4 [degF] 133/64 mm[Hg] Zhanna Mcclelland MA [facility] 5 11:25:50 Social History Question Answer Notes LastModified by Organizat ion Details LastModified Time Tobacco Smoking Status Former Smoker Shanel Jennifernhung ALAS [facility] 11/05/2014 11:20:49 Do You Have An Advance [...] 11/06/2015 When Did You Quit Smoking? 16+yearssincel astcigarette Information not available 01/07/2022 Hard Of Hearing [...] OUD But Is Possibly At Risk. No [email or web address] Information not available 02/09/2024 Marital Status Informa [...] independently without assistance or assistive devices? YESASSIST Jonathan Information not available 03/07/2025 Do you have difficulty doing errands alone? No Information not available 01/07/2022 Are you able to care for yourself independently? 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 Information not available 03/09/2017 [...] split virus, trivalent, preservative 4 completed Lin hugo [facility] 08/29/2023 09:06:34 zoster live 6 completed Lin hugo [facility] 08/29/2023 09:06:34 Influenza, high-dose, trivalent, PF 6 josephine hugo [facility] 08/29/2023 09:06:34 Influenza, high-dose, trivalent, PF 7 completed Lin hugo [facility] 08/29/2023 09:06:34 Influenza, high-dose, quadrivalent, PF 0 completed Lin Valladares null, [facility] 08/29/2023 09:06:33 COVID-19, mRNA, LNP-S, PF, 30 mcg/0.3 mL dose 1 completed Lin Valladares null, [facility] 08/29/2023 09:06:33 COVID-19, mRNA, LNP-S, PF, 30 mcg/0.3 mL dose 1 completed Lin Valladares null, [facility] 08/29/2023 09:06:33 COVID-19, mRNA, LNP-S, PF, 30 mcg/0.3 mL dose 1 completed Lin Valladares null, [facility] 08/29/2023 09:06:33 Influenza, high-dose, trivalent, PF 8 completed Lin Valladares null, [facility] 08/29/2023 09:06:34 Influenza, split virus, trivalent, preservative 5 completed Lin Valladares null, [facility] 08/29/2023 09:06:34 Influenza, high-dose, quadrivalent, PF 1 completed Lin Valladares null, [facility] 08/29/2023 09:06:33 Pneumococcal conjugate PCV 13 5 completed Linbonny Valladares null, [facility] 08/29/2023 09:06:34 pneumococcal polysaccharide PPV23 6 completed Lin Valladares null, [facility] 08/29/2023 09:06:34 Influenza, high-dose, trivalent, PF 9 completed Linbonny Valladares null, [facility] 08/29/2023 09:06:34 Td (adult), 2 Lf tetanus toxoid, preservative free, adsorbed 9 completed Lin Valladares null, [facility] 08/29/2023 09:06:34 COVID-19, mRNA, LNP-S, PF, 30 mcg/0.3 mL dose, abhi-sucrose 2 completed Lin Valladares null, [facility] 08/29/2023 09:06:34 Pneumococcal conjugate PCV20, polysaccharide ETH344 conjugate, adjuvant, PF 2 completed Lin Valladares null, [facility] 08/29/2023 09:06:34 Influenza, adjuvanted, quadrivalent, PF 2 completed Lin Valladares null, [facility] 08/29/2023 09:06:33 COVID-19, mRNA, LNP-S, bivalent, PF, 50 mcg/0.5 mL or 25mcg/0.25 mL dose 3 completed Lin hugo, [facility] 08/29/2023 09:06:34 COVID-19, mRNA, LNP-S, bivalent, PF, 50 mcg/0.5 mL or 25mcg/0.25 mL dose 3 completed Lin hugo, [facility] 08/29/2023 09:06:34 zoster recombinant 3 completed [place]ET[place] Jasmine, [facility] 02/09/2024 11:12:18 COVID-19, mRNA, LNP-S, PF, 50 mcg/0.5 mL 3 completed Lin hugo, [facility] 08/29/2023 09:06:34 Influenza, adjuvanted, quadrivalent, PF 3 completed EVETTE Jasmine, [facility] 02/09/2024 11:12:18 zoster recombinant 3 completed EVETTE Jasmine, [facility] 02/09/2024 11:19:23 COVID-19, mRNA, LNP-S, PF, 50 mcg/0.5 mL 4 completed Lin hugo [facility] 08/17/2024 09:02:51 Influenza, high-dose, trivalent, PF 4 completed Lin hugo, [facility] 09/24/2024 10:36:03 RSV, bivalent, protein subunit RSVpreF, diluent reconstituted, 0.5 mL, PF 5 completed Malathilashae hugo [facility] 11/29/2024 10:24:29 Influenza, high-dose, trivalent, PF 5 completed Malathi Goodman [place], [facility] 08/28/2025 15:15:25 COVID-19, mRNA, LNP-S, PF, 10 mcg/0.2 mL 5 completed Not Available [facility] 09/03/2025 11:03:26 Tdap 8 completed Lin hugo [facility] 08/29/2023 09:06:34 Influenza, split virus, trivalent, preservative 1 completed Lin hugo [facility] 08/29/2023 09:06:34 Influenza, split virus, trivalent, preservative 2 completed Lin hugo [facility] 08/29/2023 09:06:34 Influenza, split virus, trivalent, preservative 3 completed Lin hugo [facility] 08/29/2023 09:06:34 Past Encounters Encounter ID Performer Location Encounter Start Date Encounter Closed Date Diagnosis/Indication Diagnosis SNOMED-CT Code Diagnosis ICD10 Code Diagnosis IMO Codes Diagnosis Note [id number] [facility] [address] [facility] [address] [place] [address] 02/13/2007 00:00:00 [id number] [facility] [address] [facility] [address] [place] [address] 06/28/2007 00:00:00 [id number] [facility] [address] [place] [address] 01/04/2008 00:00:00 [id number] [facility] [address] [address] [place] [address] 07/12/2008 00:00:00 [id number] [facility] [address] [facility] [address] [place] [address] 08/12/2009 00:00:00 [id number] [facility] [facility] [address] [facility] [address] [place] [address] 08/17/2010 00:00:00 [id number] [facility] [facility] [address] [facility] [address] [place] [address] 09/28/2011 00:00:00 [id number] [facility] er[facility] [address] [facility] [address] [place] [address] 10/11/2012 00:00:00 [id number] [facility] [address] [facility] [address] [place] [address] 04/11/2013 00:00:00 [id number] [facility] [facility] [address] [facility] [place] [address] 10/29/2013 00:00:00 [id number] [facility] [facility] [address] [facility] [place] [address] 01/29/2014 00:00:00 [id number] Quentin Bell MD Main Office [address] [address] [place] [place], [place] [address] 11/05/2014 11:06:38 11/05/2014 12:07:06 Adult health examination 198139909 Phobia 090590289 Difficult y flying Hyperlipidemia 01569920 Administra tion of pneumococcal vaccine 41813915 Varicella vaccination 12699715 Foot-drop 0097685 Pain of [facility] region 43057754 Elevated blood-pressure reading without diagnosis of hypertension 817076692 [id number] Quentin Bell MD Main Office [address] [address] [place], [place] [address] 11/06/2015 12:41:51 11/06/2015 14:21:02 Adult health examination 662919559 Z00.00 Phobia 799782202 F40.9 Difficulty flying Foot-drop 5105478 M21.37 9 Administra tion of pneumococcal vaccine 68770831 Z23 Varicella vaccination 68 290570 Z23 Chest pain on exertion 01180844 R07.89 Hyperlipidemia 91096234 E78.5 Elevated blood-pressure reading without diagnosis of hypertension 829525004 R03.0 [id number] Quentin Bell MD Main Office [address] [address] 11/08/2016 09:54:36 11/08/2016 11:06:45 Adult health examination 063506536 Z00.00 Hyperlipidemia 10888453 E78.5 Phobia 242172853 F40.9 Difficulty flying Screening for malignant neoplasm of colon 501674090 Z12.11 Foot-drop 3521851 M21.37 2 [id number] Quentin Bell MD Main Office [facility] [address] [address] 11/11/2017 13:45:44 11/11/2017 14:46:55 Adult health examination 093342827 Z00.00 Screening for malignant neoplasm of colon 178033983 Z12.11 Hyperlipidemia 67363168 E78.5 Phobia 620637197 F40.9 Difficulty flying [id number] Quentin Bell MD Main Office [address] [address] 01/19/2019 12:42:22 01/19/2019 13:59:10 Administration of diphtheria and tetanus vaccine 05465804 Z23 Essential hypertension 05617281 I10 Hepatitis C screening 41 5354276 Z11.59 Adult heal th examination 746588365 Z00.00 Foot-drop 7790498 M21.37 2 chronic. May be lacunar CVA. Longstandi ng Hyperlipidemia 61721525 E78.5 [id number] Jovi Alberts MD Main Office [address] [address] 03/21/2019 13:32:08 03/21/2019 14:16:47 Essential hypertension 54302164 I10 bp stable, cont meds as dir, cr stable 4.19 - rec check bmp ~ 1-2 wks ac next ov [id number] Jovi Alberts MD Main Office [address] [facility] [address] [facility] [facility] [place] [address] 07/19/2019 10:44:30 07/19/2019 12:12:57 Essential hypertension 73318974 I10 bp & cr stable, cont meds as dir Influenza vaccine needed 9451015370 106 Z23 Requires a tetanus booster 738351337 Z23 Hyperlipidemia 09596831 E78.5 stable, cont med as dir Impacted c erumen of bilateral ears 4476712612 432430 H61.23 Chalazion of upper eyelid 534771441 H00.11 Right foot drop 05971575 01 25567 M21.371 L foot drop -- seen by pssp and neuro in past - sxs persist - will get neurosurgi carlos opinion Foot-drop 2268637 M21.37 2 see above - R foot drop in error - should be L foot drop [id number] Jovi Alberts MD Main Office [address] [place] [address] 01/05/2021 11:00:52 01/05/2021 12:09:10 Adult health examination 115477493 Z00.00 Essential hypertension 41658231 I10 bp stable, cont meds as dir Hyperlipidemia 58418580 E78.5 cont med as dir Foot-drop 3722597 M21.37 2 seen by PT , pssp and neurology remotely - see above & below - did not benefit from AFO as per pt Chronic low back pain 27 7770577 M54.5 see above - will get ortho eval History of polyp of colon 776231946 Z86.010 next colon 7.23 Impaired f asting glycemia 151755634 R73.01 [id number] Jovi Alberts MD Main Office [address] [facility] [address] [facility] [place] [address] 07/08/2021 13:25:54 07/08/2021 14:20:38 Essential hypertension 29145825 I10 bp stable, cont meds as dir Influenza vaccine needed 3090118441 106 Z23 Chronic low back pain 27 3600482 M54.50 pending see ortho - encouraged pt to call to set up eval Prediabetes 442516908 R7 3.03 Geo - unfortunat vin you have pre-diabet es - rec. less sugar intake (ice cream, candy, soda, juice, etc.) and follow a low carb diet. Hyperlipidemia 24897922 E78.5 stable, cont med as dir Benign pro static hyperplasia 133059058 N40.0 Foot-drop 9793655 M21.37 2 seen by PT , pssp and neurology remotely - see above re: ortho for lbp - did not benefit from AFO as per pt [id number] Shameka salinas MD Main Office [address] [address] 08/05/2021 10:31:45 08/05/2021 11:44:01 Pre-surgery evaluation 555960982 Z01.818 Patient is at low risk for cardiopulm onary complicati ons with planned procedure based on comorbidit ies, good exertional tolerance and overall procedure risk. Patient advised to avoid aspirin and NSAIDS for 7 days prior. May proceed to scheduled surgery as planned. Schumacher 0.2% Take BP med am of surgery Bilateral cataracts 9572 2003 H26.9 having surgery Prediabetes 324336429 R7 3.03 controlled , hgba1c 5.7 Essential hypertension 47731385 I10 BP is controlled on present regimen, continue all meds at current dosages. Continue with low salt diet, exercise Foot-drop 8345301 M21.37 2 present at baseline causing gait disturbanc e [id number] Jovi Alberts MD Main Office [address] [address] 01/07/2022 12:56:45 01/07/2022 14:34:55 Adult health examination 061621553 Z00.00 Essential hypertension 94291579 I10 bp stable, cont meds as dir Hyperlipidemia 07002508 E78.5 cont med as dir Foot-drop 2940663 M21.37 2 seen by PT , pssp and neurology remotely - see below - did not benefit from AFO as per pt Chronic low back pain 27 3318477 M54.50 see above - will get ortho eval History of polyp of colon 599710936 Z86.010 next colon 7.23 Impaired f asting glycemia 683389910 R73.01 Anxiety 15543591 F41.9 rarely uses ac flight Screening for cardiovascular system disease 628391123 Z13.6 Varicella vaccination 68 488486 Z23 Impacted c erumen of bilateral ears 3537116301 156544 H61.23 Nicotine dependence 5629 4008 F17.200 Cardiovasc ular symptoms 797850748 R09.89 [id number] Jovi Alberts MD Main Office [address] [facility] [address] [place] [address] 04/05/2022 10:32:40 04/05/2022 11:37:12 Pain of right knee region 3760762830 62725 M25.561 seen in ER last month - had xray - mild OA see below - seen by ortho 2 wks ago ? if R knee pain d/t gout (acute) vs compensati ng for L foot drop (chronic) - trial c natalie wrap for add'l support, ice, tylenol atc (cont meloxicam - avoid ibu), check uric acid level --- trial c PT - if no better consider second opinion c PMR Gout 38970551 M10.9 h/o gout in great toe remotely, ? if related to current Foot-drop 4177901 M21.37 2 seen by PT , pssp and neurology remotely - see below - did not benefit from AFO as per pt 7.22 - seen by ortho 2 wks ago - pending emg --- also, changed to meloxicam for above R knee pain [id number] Ben Lee MD Main Office [address] [facility] [address] [place] [place] [address] 07/08/2022 09:29:57 07/08/2022 11:47:32 [id number] Jovi Alberts MD Main Office [address] [facility] [address] [place] [address] 07/14/2022 09:39:53 07/14/2022 14:05:11 [id number] Jovi Alberts MD Main Office [address] [facility] [address] [place] [address] 02/07/2023 13:31:32 02/07/2023 14:39:16 Adult health examination 406335665 Z00.00 Foot-drop 6850408 M21.37 2 seen by PT , pssp and neurology remotely - see below - did not benefit from AFO as per pt 7. - seen by ortho 2 wks ago - pending emg --- also, changed to meloxicam for above R knee pain 5. - rev chart - seen by multiple specialist s - see below re: neuro re-eval Chronic low back pain 27 2154121 M54.50 see above - will get ortho eval5. - seen by ortho, better History of polyp of colon 386710636 Z86.010 next colon . 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 Pain in lower limb 89999 006 M79.605 no pain but decreased mobility which is worse than his baseline. Had similar sx when he had COVID in June and he currently has cold sx. Impaired mobility 644969 05 Z74.09 left leg due to foot drop, worse than his baseline, has had extensive woork-up for this without real answers, needs to reschedule with a new neurologis t Foot-drop 0980908 M21.37 2 Cough 88364929 R05.9 Pain of mu ltiple joints 30897260 M25.50 will check bloodwork. [id number] Jovi Alberts MD Main Office [address] [facility] [address] [place] [address] 08/11/2023 11:00:41 08/11/2023 12:29:20 Foot-drop 5874117 M21.372 seen by PT , pssp and neurology remotely - see below - did not benefit from AFO as per pt7.22 - seen by ortho 2 wks ago - pending emg --- also, changed to meloxicam for above R knee pain 5.23 - rev chart - seen by multiple specialist s - see below re: neuro re-eval Essential hypertension 29116449 I10 bp stable, cont meds as dir Hyperlipidemia 20489922 E78.5 cont med as dir Multiple sclerosis 38070 007 G35 newly dx'd - cont f/u c neuro, apparently had ncs, no medswill attempt to get f/u note from ? 8.23 History of polyp of colon 928495089 Z86.010 next colon 7.23 - rec call jessica cevallos, handed to pt Strain of muscle of right groin region 7824519754 2353915 S76.011A rec heat prn, hep Prediabetes 319278362 R7 3.03 Geo - unfortunat vin you have pre-diabet es - rec. less sugar intake (ice cream, candy, soda, juice, etc.) and follow a low carb diet. [id number] Jovi Alberts MD Main Office [address] [facility] [address] [place] [address] 02/09/2024 11:04:04 02/09/2024 12:05:53 Adult health examination 394322039 Z00.00 pt states he has had PT in past, uses cane - no falls lately - declines FPI eval Advance di rective discussed with patient 569779232 Z71.89 Foot-drop 2560289 M21.37 2 seen by PT , pssp and neurology remotely - see below - did not benefit from AFO as per pt7.22 - seen by ortho 2 wks ago - pending emg --- also, changed to meloxicam for above R knee pain 5.23 - rev chart - seen by multiple specialist s - see below re: neuro re-eval Multiple sclerosis 10522 007 G35 newly dx'd - cont f/u c neuro, apparently had ncs, no medswill attempt to get f/u note from ? 8.23 5.24 - reviewed 9. neuro note c pt - did not get 3.24 ov note, but encouraged pt to consider beginning dalfamprid ine as dir by neuro (will attempt to get note)cont f/u c neuro - next 9. Hyperlipidemia 74488293 E78.5 cont med as dir History of polyp of colon 484212878 Z86.010 next colon 7. - rec call jessica sauceda ban, handed to pt 5. 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 less sugar intake (ice cream, candy, soda, juice, etc.) and follow a low carb diet. Gout 70098510 M10.9 h/o gout in great toe remotely, ? if related to diet - recheck uric acid Nocturia 893257495 R35.1 Essential hypertension 51592168 I10 bp stable, cont meds as dir [id number] Jovi Alberts MD Main Office [address] [facility] [address] [place] [address] 08/06/2024 10:58:13 08/06/2024 12:00:24 Essential hypertension 60285124 I10 bp stable, cont meds as dir Hyperlipidemia 30691926 E78.5 stable - cont med as dir History of polyp of colon 718945194 Z86.0100 pending colon in 1.25 Prediabetes 410773317 R7 3.03 Geo - unfortunat vin you have pre-diabet es - rec. less sugar intake (ice cream, candy, soda, juice, etc.) and follow a low carb diet. 11.24 - A1c slowly trending up, rest of labs normalrec less ice creamstopp ed beer (sig less) Gout 91530566 M10.9 h/o gout in great toe remotely, ? if related to diet - recheck uric acid 11.24 - uric acid stable Multiple sclerosis 86775 007 G35 newly dx'd - cont f/u c neuro, apparently had ncs, no medswill attempt to get f/u note from ? 05.18 - reviewed 9.23 neuro note c pt - did not get 3.24 ov note, but encouraged pt to consider beginning dalfamprid ine as dir by neuro (will attempt to get note)cont f/u c neuro - next 06.19 - stable, deferred above med, f/u c neuro q yr (06.20) [id number] Jovi Alberts MD Main Office [address] [facility] [address] [place] [address] 03/07/2025 15:12:57 03/11/2025 12:54:27 Adult health examination 496537232 Z00.00 pt states he has had PT in past, uses cane - 2 falls in the past year Essential hypertension 28695716 I10 bp stable, cont meds as dir Hyperlipidemia 47421778 E78.5 stable - cont med as dir History of polyp of colon 325351221 Z86.0100 had colon 1.25, due q5y Prediabetes 079090411 R7 3.03 Geo - unfortunat vin you have pre-diabet es - rec. less sugar intake (ice cream, candy, soda, juice, etc.) and follow a low carb diet. 08.19 - A1c slowly trending up, rest of labs normalrec less ice creamstopp ed beer (sig less) . - a1c was 6.0% in 08.19. diet controlled Multiple sclerosis 29305 007 G35 newly dx'd - cont f/u c neuro, apparently had ncs, no medswill attempt to get f/u note from ? 05.18. - reviewed 06.18 neuro note c pt - did not get 3.24 ov note, but encouraged pt to consider beginning dalfamprid ine as dir by neuro (will attempt to get note)cont f/u c neuro - next 06.19 - stable, deferred above med, f/u c neuro q yr (06.20) 6.25 - uses cane for LLE, has poor coordinati on in L leg, no pain. Chronic low back pain 27 4084371 M54.50 see above - will get ortho eval5.23 - seen by ortho, better 6.25 - see above Disorder o f right sciatic nerve 9209851280 49326 M54.31 804727 see belowonset of R> calf pain and posterior upper thigh pain ongoing for 7 days, worse with movement. no erythema or warmth.jose l get pmr evalpt declined gbn Vitamin D deficiency 347 53389 E55.9 Nocturia 829619698 R35.1 Anemia due to unknown mechanism [id number] D64.9 R68.89 [id number] Jovi Alberts MD Main Office [address] [facility] [address] [facility] [place] [id number] 09/03/2025 11:00:31 09/03/2025 11:53:18 Prediabetes [id number] R73.03 Geo - unfortunat vin you have pre-diabet es - rec. less sugar intake (ice cream, candy, soda, juice, etc.) and follow a low carb diet. .24 - A1c slowly trending up, rest of labs normalrec less ice creamstopp ed beer (sig less) 6.25 - a1c was 6.0% in 08.19. diet controlled 12.25 - a1c down to 5.8 - less etoh Essential hypertension [id number] I10 bp stable, cont meds as dir Vitamin D deficiency 347 08850 E55.9 45836 Geo - your vitamin D level is a little low. I rec. begin taking an over-the-c ounter vitamin D supplement 2000iu daily.- Pat Hyperlipidemia [id number] E78.5 stable - cont med as dir Left inguinal hernia [id number] K40.90 [id number] h/o R inguinal hernia repair > 30 yrs agoc/o bulging L groin x few wks - no pain - ? from situps vs heavy liftingwil l get general surgery evalmeanwh ile - rec avoid straining (see below) / heavy lifting, consider truss Chronic constipation 236 [id number] K59.09 [id number] chronic, mild - rec colace daily, as well as plenty of water intake Health Concerns Section Related Observation LastModified by Organization Detai ls LastModified Time None Recorded Concern Status LastModified by Organization Details LastModified Time None Recorded Advance Directives Directive Y: Payers Insurance Date Sequence Insurance Name Policy Number Policy Wilson Covered Member ID Wilson Member ID Guarantor Name 09/09/2025 2 [employer] [facility] [facility] [employer] (INDEMNITY) [id number] 2 Amirah Bazan [id number] Geo Das Hortensia 09/03/2025 1 MEDICARE B-[place]: [facility] Geo Bazan Jr [id number] Geo Das Bazan Notes Date Note Type Note Provider Name and Address Organization Details Recorded Time 08/11/2023 text/html Hypertension F/UReported by PatientHPIFor associated symptoms, patient reportsno dizziness,no lightheadedness,no chest pain,no shortness of breath,no palpitations,no edema, andno calf pain with exertion. For lifestyle, patient reportsregular exerciseandlimiting/av oiding salt. For medications, patient reportstaking medications as directedandno side effects from medication. here for f/u visitseen by neuro - reviewed notealso c/o occ R groin pain Martha Asher PA-C [address], [address], [facility] 08/11/2023 13:17:56 02/09/2024 text/html Medicare Annual Wellness VisitReported by PatientSocial/Behavior al HistoryFor physical activity, patient reportsdoes not exercise on a regular basisbut reportsdiscussed weightbearing activities (goes to gym). For diet and nutrition, patient reportshealthy diet. For fracture risk, patient reportsno history of fractures,no recent explained fracture, andno sudden unexplained fractures.Mental Status:For depression risk, patient reportsnever feels sad, empty, or tearful,no loss of interest in activities,no significant changes in weight,no sleep disturbances or insomnia,no agitation,no loss of energy,no feelings of worthlessness or guilt,no thoughts of suicide,no history of depression, andno history of mood disorders. For orientation, patient reportsno disorientation to time,no disorientation to date, andno disorientation to place. For concentration and memory, patient reportsno memory lapses or loss. For speech/motor difficulties, patient reportsno speech difficulties,no difficulty expressing formulated concepts,no difficulty with fine manipulative tasks,no difficulty writing/copying,no slowed reaction time, anddoes not knock things over when trying to pick them up.Functional AbilityFor hearing, patient reportsno loss of hearing. For vision, patient reportsno vision problems. For activities of daily living, patient reportsable to bathe with limited or no assistance,able to contol urination and bowels,able to dress with limited or no assistance,able to feed self with limited or no assistance,able to get out of chair or bed with limited or no assistance,able to groom with limited or no assistance, andable to toilet with limited or no assistance. For instrumental activities of daily living, patient reportsable to do house work with limited or no assistance,able to grocery shop with limited or no assistance,able to manage medications with limited or no assistance,able to manage money with limited or no assistance,able to prepare meals with limited or no assistance, andable to use the phone with limited or no assistance. For falls risk assessment, patient reportsno frequent falls while walking,no fall in the past year,no fall since last visit, andno dizziness/vertigo. For home safety, patient reportsworking smoke/co detectors,use of seatbelts,no fire arms, andgood lighting in the home. Mary hugo, [facility] 02/14/2024 15:14:07 08/06/2024 text/html Hypertension F/UReported by PatientHPIFor lifestyle, patient reportsnot exercising regularlybut reportslimiting/avoidi ng salt. For associated symptoms, patient reportsno dizziness,no lightheadedness,no chest pain,no shortness of breath,no palpitations,no edema, andno calf pain with exertion. For medications, patient reportstaking medications as directedandno side effects from medication. Martha Asher PA-C [address] [address], [place], [phone], [facility] 08/06/2024 17:41:22 03/07/2025 text/html Medicare Annual Wellness VisitReported by PatientSocial/Behavior al HistoryFor physical activity, patient reportsdoes not exercise on a regular basisanddecreased physical activity (disabled with ms can't move l leg). For diet and nutrition, patient reportshealthy diet. For fracture risk, patient reportsno history of fractures.Mental Status:For concentration and memory, patient reportsforgetting wordsbut reportsno decreased concentrating ability. For depression risk, patient reportsnever feels sad, empty, or tearful. For orientation, patient reportsno disorientation to time,no disorientation to date, andno disorientation to place. For speech/motor difficulties, patient reportsno speech difficulties.Functiona l AbilityFor vision, patient reportsworsening (sees eye doc q2y, likely d/t ms). For hearing, patient reportsno loss of hearing. For activities of daily living, patient reportsable to bathe with limited or no assistance,able to contol urination and bowels,able to dress with limited or no assistance, andable to feed self with limited or no assistance. For falls risk assessment, patient reportsfall(s) in the past year 1-2.ROS as noted in the HPI Here for annual wellness visit. Reports onset of R> calf and posterior upper thigh pain starting 1 week ago in R> leg. Reported as severe pain when sitting to standing. Pain subsides after standing. No warmth. No history of blood clot. Martha Asher PA-C [address], [phone], [facility] 03/07/2025 17:35:24 09/03/2025 text/html Hypertension F/UReported by PatientHPIFor lifestyle, patient reportsnot exercising regularlybut reportslimiting/avoidi ng salt. For associated symptoms, patient reportsno dizziness,no lightheadedness,no chest pain,no shortness of breath,no palpitations,no edema, andno calf pain with exertion. For medications, patient reportstaking medications as directedandno side effects from medication. Martha Asher PA-C [address] [address], [place], [phone], [facility] 09/03/2025 12:20:29
== END 2025-09-17 12:41 | disposition home or self-care (01) ==
LOC: HO.HSM 12:23
PROVIDERS: PCP Internal Medicine; Visit Provider Psychiatry & Neurology Neurology
DX: G35.D Multiple sclerosis, unspecified (principal)
CPT/HCPCS: 99214

== ENCOUNTER → 2025-09-17 12:22 | Outpatient (BNVA) | payer MEDICARE, OTHER, SELFPAY | PROVIDERS: PCP Internal Medicine; Visit Provider Psychiatry & Neurology Neurology | DX: G35.D Multiple sclerosis, unspecified (principal) | CPT/HCPCS: 99212 ==